=== PATIENT | female | born 1940 | race Caucasian/White ===

== ENCOUNTER → 2017-03-03 | Outpatient (CLI) | payer MEDICARE ==
[2017-03-03 08:23] LABS: CH 28.3; CHCM 33.5; HCT 49.9 % (34.0-46.0); HDW 3.08; HGB 16.6 gm/dL (11.4-16.0); MCH 28.1 pg (25.0-35.0); MCHC 33.2 g/dL (31.0-37.0); MCV 84.7 fL (80.0-100.0); Mean Platelet Volume 6.3; RBC 5.89 m/uL (3.80-5.40); RDW 14.8 % (11.5-15.5); WBC 9.1 k/uL (3.8-10.6)
[2017-03-03 08:27] LABS: ALT 31 U/L (9-52); AST 30 U/L (14-36); Alkaline Phosphatase 92 U/L (38-126); Anion Gap 11 mmol/L; Blood Urea Nitrogen 22 mg/dL (7-17); Carbon Dioxide 32 mmol/L (22-30); Chloride 100 mmol/L (98-107); Cholesterol 195 mg/dL (<200); Glucose 113 mg/dL (74-99); HDL Cholesterol 56 mg/dL (40-60); Non-African American GFR(MDRD) 54 (>60 ml/min/1.73 sqM); Potassium 4.4 mmol/L (3.5-5.1); Sodium 143 mmol/L (137-145); Total Bilirubin 0.7 mg/dL (0.2-1.3); Total Protein 7.2 g/dL (6.3-8.2); Triglycerides 215 mg/dL (<150); Uric Acid 7.3 mg/dL (3.7-7.4)
[2017-03-03 08:32] LABS: Appearance,Urine Turbid (Clear); Bacteria,Urine Many /hpf; Bilirubin,Urine Negative (Negative); Glucose,Urine (UA) Negative (Negative); Ketones,Urine Negative (Negative); Leukocyte Esterase,Urine Large (Negative); Mucus,Urine Rare /hpf; Nitrite,Urine Negative (Negative); Particle Count 24444; Protein,Urine 1+ (Negative); Squamous Epithelial Cell,Urine 6 /hpf (0-4); UA Billing (MACRO vs. MICRO) MICRO; Urobilinogen,Urine <2.0 mg/dL (<2.0); WBC,Urine 54 /hpf (0-5)
[2017-03-03 13:53] LABS: Hemoglobin A1C 5.9 % (4.2-6.1)
== END | disposition home or self-care (01) ==
LOC: LABWHC1 07:36
PROVIDERS: ATTEND Family Medicine
DX: I10 Essential (primary) hypertension (principal); M10.9 Gout, unspecified; R73.01 Impaired fasting glucose
CPT/HCPCS: 36415; 80053; 80061; 81001; 83036; 84550; 85027

== ENCOUNTER → 2017-05-07 | Outpatient (CLI) | payer MEDICARE ==
--- NOTE | 2017-05-08 13:24 | MM ---
Reason for exam: screening (asymptomatic). Last mammogram was performed 1 year and 3 months ago. History: Patient is postmenopausal. Family history of breast cancer in 2 sisters and premenopausal breast cancer in sister. Benign stereotactic core biopsy of the left breast, August 13, 2000. Core biopsy of the left breast. Physical Findings: A clinical breast exam by your physician is recommended on an annual basis and results should be correlated with mammographic findings. MG 3D Screening Mammo W/Cad Bilateral CC and MLO view(s) were taken. Prior study comparison: February 07, 2016, bilateral MG screening mammo w CAD. January 05, 2015, bilateral MG screening mammo w CAD. There are scattered fibroglandular densities. There is no discrete abnormality. No significant changes when compared with prior studies. ASSESSMENT: Benign, BI-RAD 2 RECOMMENDATION: Routine screening mammogram of both breasts in 1 year.
== END | disposition home or self-care (01) ==
LOC: RADMAMWWP 10:48
PROVIDERS: ATTEND Family Medicine
DX: Z12.31 Encounter for screening mammogram for malignant neoplasm of breast (principal)
CPT/HCPCS: 77063; G0202

== ENCOUNTER → 2018-11-05 | Outpatient (CLI) | payer MEDICARE ==
--- NOTE | 2018-11-05 10:27 | CT ---
EXAMINATION TYPE: CT abdomen pelvis w con DATE OF EXAM: 11/05/2018 HISTORY: LLQ pain CT DLP: 1706mGycm Automated Exposure Control for Dose Reduction was Utilized. CONTRAST: CT scan of the abdomen and pelvis is performed with IV Contrast, patient injected with 100 ml mL of I sovue 300. COMPARISON: None. FINDINGS: LUNG BASES: Subpleural subsegmental atelectasis is seen dependently bilaterally. LIVER/GB: Hepatic parenchyma is diffusely hypoattenuated in comparison to that of the spleen, most co mmonly seen in hepatic steatosis. This finding limits evaluation for hepatic masses. No gross evidenc e of hepatic mass is seen. No intrahepatic biliary ductal dilatation. No cholelithiasis . PANCREAS: There is mild pancreatic parenchymal atrophy without ductal dilatation. SPLEEN: No significant abnormality is seen. ADRENALS: No significant abnormality is seen. KIDNEYS: There is left renal atrophy with multiple left renal cysts measuring 3.4 and 3.2 cm and 2 le ft lower pole renal calculi not are nonobstructing measuring 5 mm each. Focal cortical defect is seen on the right lateral mid pole possibly from prior trauma. No right-side d hydronephrosis is seen. BOWEL: Moderate amount retained colonic stool is noted. No dilated large or small bowel is seen. No p ericolonic fat stranding is identified. Appendix is air-filled and within normal limits. There appear s to be a polypoid lesion within the stomach on coronal series 6 image 50 and sagittal series 7 image 73 measuring 1.2 x 2.0 cm. Endoscopy is recommended. UTERUS/ADNEXA: Uterus appears heterogenous and partially atrophic. Centrally there is hyperattenuatio n such as on series 4 image 69 in liver windows. Endometrial thickening is a possibility and pelvic u ltrasound is recommended. LYMPH NODES: No greater than 1cm abdominal or pelvic lymph nodes are appreciated. OSSEOUS STRUCTURES: Mild femoral acetabular arthropathy is present bilaterally. Degenerative changes of the sacroiliac joints are seen as well as degenerative changes of the spine.. OTHER: Extensive atheromatous changes are seen of the abdominal aorta and its branches, penetrating a theromatous ulcer is noted on series 4 image 38. IMPRESSION: 1. No significant acute finding is seen to account for patient's clinical symptoms. However there is heterogeneity of the uterus with possible fibroid change or endometrial thickening and pelvic ultraso und is recommended for further assessment. 2. Polypoid lesion within the gastric fundus measuring up to 2 cm for which endoscopy is recommended for further evaluation. 3. Atrophic left kidney with multiple cysts and nonobstructing calculi. 4. Hepatic steatosis. 5. Extensive atheromatous plaquing of the abdominal aorta and its branches.
== END ==
LOC: RADCTMAIN 07:35
PROVIDERS: ATTEND Family Medicine
DX: K31.7 Polyp of stomach and duodenum (principal); N26.1 Atrophy of kidney (terminal); N20.0 Calculus of kidney; K76.0 Fatty (change of) liver, not elsewhere classified; I70.0 Atherosclerosis of aorta
CPT/HCPCS: 82565; 84520; 74177; 36415; Q9967

== ENCOUNTER 2018-12-31 12:13 | Observation (INO) | payer MEDICARE ==
--- NOTE | 2018-12-31 12:59 | ED ---
General Adult HPI - General Chief complaint: Chest Pain Stated complaint: chest pain Time Seen by Provider: 12/31/18 12:15 Source: patient, RN notes reviewed Mode of arrival: EMS Limitations: no limitations - History of Present Illness Initial comments: This is a 78-year-old female with past medical history significant for high blood pressure high cholesterol and a family history for cardiac disease. Patient was having cataract surgery today and after surgery she spiked a blood pressure over to 20 and then started having chest heaviness radiating into her left arm. Patient states she was also short of breath at that time. Patient was given hydralazine at the facility but did not bring down her blood pressure. At this point time the patient had an EKG which the anesthesiologist stated was normal and she was then transported to the emergency department. Currently patient states she is chest pain-free. Patient had Nitropaste on her chest from the anesthesiologist as well. Patient denies abdominal pain patient has nausea vomiting diarrhea. - Related Data Home Medications Medication Instructions Recorded Confirmed Allopurinol 300 mg PO DAILY 03/08/15 12/31/18 Atenolol 50 mg PO DAILY 03/08/15 12/31/18 Pravastatin Sodium 40 mg PO DAILY 03/08/15 12/31/18 Triamterene/Hydrochlorothiazid 37.5 mg PO DAILY 03/08/15 12/31/18 [Triamterene-Hctz 37.5-25 mg Cp] Calcium Carbonate [Calcium] 600 mg PO DAILY 12/31/18 12/31/18 Cholecalciferol [Vitamin D3] 1,000 unit PO DAILY 12/31/18 12/31/18 Allergies Allergy/AdvReac Type Severity Reaction Status Date / Time No Known Allergies Allergy Verified 12/31/18 13:06 Review of Systems ROS Statement: Those systems with pertinent positive or pertinent negative responses have been documented in the HPI. ROS Other: All systems not noted in ROS Statement are negative. Past Medical History Past Medical History: Hypertension History of Any Multi-Drug Resistant Organisms: None Reported Past Surgical History: Cholecystectomy, Hysterectomy, Tubal Ligation Past Psychological History: No Psychological Hx Reported Smoking Status: Former smoker Past Alcohol Use History: None Reported Past Drug Use History: None Reported General Exam - General Exam Comments Initial Comments: GENERAL: Patient is well-developed and well-nourished. Patient is nontoxic and well- hydrated and is in mild distress. ENT: Neck is soft and supple. No significant lymphadenopathy is noted. Oropharynx is clear. Moist mucous membranes. Neck has full range of motion without eliciting any pain. EYES: The sclera were anicteric and conjunctiva were pink and moist. Extraocular movements were intact and pupils were equal round and reactive to light. Eyelids were unremarkable. PULMONARY: Unlabored respirations. Good breath sounds bilaterally. No audible rales rhonchi or wheezing was noted. CARDIOVASCULAR: There is a regular rate and rhythm without any murmurs gallops or rubs. ABDOMEN: Soft and nontender with normal bowel sounds. No palpable organomegaly was noted. There is no palpable pulsatile mass. SKIN: Skin is clear with no lesions or rashes and otherwise unremarkable. NEUROLOGIC: Patient is alert and oriented x3. Cranial nerves II through XII are grossly intact. Motor and sensory are also intact. Normal speech, volume and content. Symmetrical smile. MUSCULOSKELETAL: Normal extremities with adequate strength and full range of motion. No lower extremity swelling or edema. No calf tenderness. LYMPHATICS: No significant lymphadenopathy is noted PSYCHIATRIC: Normal psychiatric evaluation. Limitations: no limitations Course Vital Signs 12/31/18 12/31/18 12:30 13:30 Temperature 97.8 F Pulse Rate 77 75 Respiratory 16 18 Rate Blood Pressure 160/72 139/86 O2 Sat by Pulse 95 94 L Oximetry Medical Decision Making - Medical Decision Making EKG shows sinus rhythm at 77 bpm OH interval is 194 QRS is 94 QT interval 42 QTC is 454. Patient's EKG shows no ST segment elevation or depression or T wave normalities are noted. The. Chest x-ray shows no acute abnormality. Patient's blood pressure came down to 125 systolic and patient had no chest pain at this time. Because of the significance of the patient's symptoms she was diagnosed with unstable angina. I started the patient on heparin I continued heparin Nitropaste and aspirin floor. I spoke with Dr. Tavares agreed to admit the patient admitted the patient I wrote admitting orders consult cardiology - Lab Data Result diagrams: 12/31/18 13:34 12/31/18 13:34 Lab Results 12/31/18 12/31/18 12/31/18 Range/Units 13:34 13:34 13:34 WBC 8.8 (3.8-10.6) k/uL RBC 5.72 H (3.80-5.40) m/uL Hgb 15.6 (11.4-16.0) gm/dL Hct 48.4 H (34.0-46.0) % MCV 84.6 (80.0-100.0) fL MCH 27.3 (25.0-35.0) pg MCHC 32.3 (31.0-37.0) g/dL RDW 15.0 (11.5-15.5) % Plt Count 205 (150-450) k/uL Neutrophils % 71 % Lymphocytes % 19 % Monocytes % 7 % Eosinophils % 2 % Basophils % 1 % Neutrophils # 6.2 (1.3-7.7) k/uL Lymphocytes # 1.7 (1.0-4.8) k/uL Monocytes # 0.6 (0-1.0) k/uL Eosinophils # 0.1 (0-0.7) k/uL Basophils # 0.1 (0-0.2) k/uL PT 10.6 (9.0-12.0) sec INR 1.0 (<1.2) APTT 23.3 (22.0-30.0) sec Sodium 140 (137-145) mmol/L Potassium 3.8 (3.5-5.1) mmol/L Chloride 104 (98-107) mmol/L Carbon Dioxide 28 (22-30) mmol/L Anion Gap 8 mmol/L BUN 13 (7-17) mg/dL Creatinine 0.59 (0.52-1.04) mg/dL Est GFR (CKD-EPI)AfAm >90 (>60 ml/min/1.73 sqM) Est GFR (CKD-EPI)NonAf 88 (>60 ml/min/1.73 sqM) Glucose 113 H (74-99) mg/dL Calcium 9.6 (8.4-10.2) mg/dL Magnesium 2.0 (1.6-2.3) mg/dL Total Bilirubin 0.7 (0.2-1.3) mg/dL AST 33 (14-36) U/L ALT 27 (9-52) U/L Alkaline Phosphatase 70 (38-126) U/L Troponin I (0.000-0.034) ng/mL Total Protein 6.4 (6.3-8.2) g/dL Albumin 4.0 (3.5-5.0) g/dL 12/31/18 Range/Units 13:34 WBC (3.8-10.6) k/uL RBC (3.80-5.40) m/uL Hgb (11.4-16.0) gm/dL Hct (34.0-46.0) % MCV (80.0-100.0) fL MCH (25.0-35.0) pg MCHC (31.0-37.0) g/dL RDW (11.5-15.5) % Plt Count (150-450) k/uL Neutrophils % % Lymphocytes % % Monocytes % % Eosinophils % % Basophils % % Neutrophils # (1.3-7.7) k/uL Lymphocytes # (1.0-4.8) k/uL Monocytes # (0-1.0) k/uL Eosinophils # (0-0.7) k/uL Basophils # (0-0.2) k/uL PT (9.0-12.0) sec INR (<1.2) APTT (22.0-30.0) sec Sodium (137-145) mmol/L Potassium (3.5-5.1) mmol/L Chloride (98-107) mmol/L Carbon Dioxide (22-30) mmol/L Anion Gap mmol/L BUN (7-17) mg/dL Creatinine (0.52-1.04) mg/dL Est GFR (CKD-EPI)AfAm (>60 ml/min/1.73 sqM) Est GFR (CKD-EPI)NonAf (>60 ml/min/1.73 sqM) Glucose (74-99) mg/dL Calcium (8.4-10.2) mg/dL Magnesium (1.6-2.3) mg/dL Total Bilirubin (0.2-1.3) mg/dL AST (14-36) U/L ALT (9-52) U/L Alkaline Phosphatase (38-126) U/L Troponin I <0.012 (0.000-0.034) ng/mL Total Protein (6.3-8.2) g/dL Albumin (3.5-5.0) g/dL Critical Care Time Critical Care Time: Yes Total Critical Care Time: 35 Disposition Clinical Impression: Unstable angina pectoris Disposition: ADMITTED IP TO THIS HOSP Referrals: Antonio Barrow DO [Primary Care Provider] - 1-2 days Time of Disposition: 15:25
--- NOTE | 2018-12-31 13:18 | XR ---
EXAMINATION TYPE: XR chest 2V DATE OF EXAM: 12/31/2018 COMPARISON: 03/08/2015 HISTORY: Shortness of breath TECHNIQUE: Frontal and lateral views of the chest are obtained. FINDINGS: Scattered senescent parenchymal changes noted. Hyperinflation compatible with COPD. No evidence for infiltrate. No evidence for atelectasis. Heart size is stable. Mediastinal structures are stable and grossly unremarkable. No evidence for hilar prominence. Degenerative changes dorsal spine. IMPRESSION: 1. No evidence for acute pulmonary disease.
[2018-12-31 14:08] LABS: Basophils # (A) 0.1 k/uL (0-0.2); Basophils % (A) 1 %; Eosinophils # (A) 0.1 k/uL (0-0.7); Eosinophils % (A) 2 %; HCT 48.4 % (34.0-46.0); HGB 15.6 gm/dL (11.4-16.0); Lymphocytes # (A) 1.7 k/uL (1.0-4.8); Lymphocytes % (A) 19 %; MCH 27.3 pg (25.0-35.0); MCHC 32.3 g/dL (31.0-37.0); MCV 84.6 fL (80.0-100.0); Mean Platelet Volume 6.8; Monocytes # (A) 0.6 k/uL (0-1.0); Monocytes % (A) 7 %; Neutrophils # (A) 6.2 k/uL (1.3-7.7); Neutrophils % (A) 71 %; Platelet Count 205 k/uL (150-450); RBC 5.72 m/uL (3.80-5.40); WBC 8.8 k/uL (3.8-10.6)
[2018-12-31 14:18] LABS: Partial Thromboplastin Time 23.3 sec (22.0-30.0); Prothrombin Time 10.6 sec (9.0-12.0)
[2018-12-31 14:38] LABS: ALT 27 U/L (9-52); AST 33 U/L (14-36); Alkaline Phosphatase 70 U/L (38-126); Anion Gap 8 mmol/L; Blood Urea Nitrogen 13 mg/dL (7-17); Calcium 9.6 mg/dL (8.4-10.2); Carbon Dioxide 28 mmol/L (22-30); Chloride 104 mmol/L (98-107); Glucose 113 mg/dL (74-99); Potassium 3.8 mmol/L (3.5-5.1); Sodium 140 mmol/L (137-145); Total Bilirubin 0.7 mg/dL (0.2-1.3); Total Protein 6.4 g/dL (6.3-8.2)
[2018-12-31] MEDS ORDERED: HEPARIN SODIUM,PORCINE 5,000 UNIT/ML 1 ML VIAL IV ONE (15:23)
[2018-12-31] MEDS ORDERED: NITROGLYCERIN SL TABS 0.4 MG TAB SUBLINGUAL PRN (15:26)
[2018-12-31] MEDS ORDERED: HEPARIN SOD,PORK IN 0.45% NACL 25,000 UNIT in 0.45% NACL 1 250ML.BAG IV SCH (15:30)
[2018-12-31] MEDS: NITROGLYCERIN OINT 1 INCH/GM PACKET TOPICAL SCH (18:19)
[2018-12-31] MEDS ORDERED: PRAVASTATIN SODIUM 40 MG TAB PO SCH (21:00)
[2018-12-31] MEDS ORDERED: ONDANSETRON 4 MG/2 ML VIAL IVP PRN (23:06)
[2018-12-31] MEDS ORDERED: MAGNESIUM HYDROXIDE 2,400 MG/10 ML CUP PO PRN (23:06)
[2018-12-31] MEDS ORDERED: MELATONIN 3 MG TABLET PO PRN (23:06)
[2018-12-31] MEDS ORDERED: LACTULOSE 20 GM/30 ML CUP PO PRN (23:06)
[2018-12-31] MEDS ORDERED: CALCIUM CARBONATE 500 MG CHEWABLE PO PRN (23:06)
[2018-12-31] MEDS ORDERED: NALOXONE 0.4 MG/ML 1 ML VIAL IV PRN (23:06)
[2018-12-31] MEDS ORDERED: ACETAMINOPHEN TAB 500 MG TAB PO PRN (23:07)
--- NOTE | 2018-12-31 23:55 | HP ---
HISTORY AND PHYSICAL DATE OF ADMISSION: 12/31/2018 DATE OF SERVICE: 12/31/2018. PRESENTING COMPLAINT: Chest pressure. HISTORY OF PRESENTING COMPLAINT: A very pleasant 78-year-old patient of Dr. Barrow whose chronic stable medical conditions include hypertension, hyperlipidemia, osteoarthritis. The patient had cataract surgery in the right eye done by Dr. Polanco. Post procedure, she was lying down and suddenly she developed chest heaviness. Did not radiate and shortness of breath which may have lasted for about 10 minutes that subsided on its own. There was no perspiration, dizziness, lightheadedness. The patient has had several stress tests in the past, cannot remember the last time she had one. REVIEW OF SYSTEMS: CONSTITUTIONAL: As above. HEENT as above. RESPIRATORY as above. CARDIOVASCULAR as above. GASTROINTESTINAL none. GENITOURINARY: Urinary frequency, sometimes. DERMATOLOGICAL, HEMATOLOGIC, LYMPHATIC: none. PSYCHIATRY none. NEUROLOGICAL none. MUSCULOSKELETAL as above. PAST MEDICAL HISTORY: Hyperlipidemia, hypertension, obstructive sleep apnea does not use CPAP, has a mass in between the cervix and colon that she is scheduled to have a colonoscopy soon and shingles. PAST SURGICAL HISTORY: Cholecystectomy, hysterectomy, tubal ligation, right cataract done earlier today. SOCIAL HISTORY: The patient currently during the weekdays lives with her daughter who has got seizures at night and on weekend she comes back to her place. She smoked for 20 years, stopped 40 years ago. No alcohol. FAMILY HISTORY: Reviewed, not contributory to presentation. HOME MEDICATIONS: 1. Triamterene hydrochlorothiazide 37.5/25 1 capsule p.o. daily. 2. Vitamin D3 1000 units p.o. daily. 3. Pravastatin 40 mg p.o. daily. 4. Calcium 600 mg p.o. daily. 5. Atenolol 50 mg p.o. daily. 6. Allopurinol 300 mg p.o. daily. ALLERGIES: None. PHYSICAL EXAMINATION: VITAL SIGNS: Temperature 98.1, pulse 72, respiratory 18, blood pressure 142/72. Pulse ox 94 percent on room air. GENERAL APPEARANCE: Well built. BMI 43.8. Lying in bed, awake. EYES: Dressing over the right eye. Left pupil is normal. HEENT: External appearance of nose and ears normal. Oral cavity normal. NECK: JVD unable to assess. Mass not palpable. RESPIRATORY: Effort normal. LUNGS: Distant breath sounds. CARDIOVASCULAR: Heart sounds muffled. No edema. ABDOMEN: Soft, nontender. Liver and spleen not palpable. LYMPHATICS: No lymph nodes palpable in the neck and axilla. PSYCHIATRY: Alert and oriented x3. Mood and affect normal. NEUROLOGICAL: Dressing over the right eye. Left pupil appears normal. No facial asymmetry. Power and sensation grossly intact. MUSCULOSKELETAL: Evidence of osteoarthritis especially in the hands. INVESTIGATIONS: White count 8.8, hemoglobin 15.6, potassium 3.8. BUN and creatinine is normal. Troponin times two negative. EKG tracing personally reviewed by me shows normal sinus rhythm. Chest x-ray film personally reviewed by me shows borderline cardiomegaly. Lung gray appear to be clear. ASSESSMENT: 1. Anterior chest wall pain, short of breath, which was self-limiting for about 10 minutes in a patient whose cardiac risk factors include hypertension, hyperlipidemia, obesity, remote history in the past and her age. Patient has had a stress test. The last one being some while ago. Needs to consider angina. 2. Essential hypertension. 3. Hyperlipidemia. 4. Morbid obesity BMI of 43.5. 5. Primary osteoarthritis. 6. Status post right eye cataract surgery done earlier today. PLAN: Home medications resumed. Patient is put on IV heparin in the ER, nitro paste, aspirin. Cardiology is consulted. Care was discussed with the patient. Copy to Dr. Barrow. NICOLE / KORINA: [phone] /
[2019-01-01 02:49] LABS: Cholesterol 156 mg/dL (<200); HDL Cholesterol 46 mg/dL (40-60); LDL Cholesterol,Calculated 64 mg/dL (0-99); Triglycerides 228 mg/dL (<150)
[2019-01-01] MEDS: NITROGLYCERIN OINT 1 INCH/GM PACKET TOPICAL SCH ×2 (05:06→05:07)
--- NOTE | 2019-01-01 08:08 | CONS ---
CONSULTATION Mrs. Landry is a 78-year-old female with known history of hypertension, hyperlipidemia who presented to the hospital with symptoms of chest discomfort. She has underwent right cataract surgery yesterday and shortly after surgery she had episode of chest tightness as well as dyspnea. The discomfort has resolved since. She felt that it may be a reaction to some medication. She denies any symptoms at this time. She has no prior history of documented myocardial infarction or ischemic heart disease or heart failure. She is average in her exercise tolerance and has no exertional chest discomfort or significant dyspnea. Her last stress test according to her was about 2 years ago that was unremarkable. She has no history of PND, orthopnea. She has mild peripheral edema. No history of dizziness or syncope. Her coronary risk factors are positive for hyperlipidemia and hypertension. She is not a smoker, nondiabetic. MEDICATIONS: Her medications include Dyazide once a day, pravastatin 40 mg daily, calcium, atenolol 50 mg daily, and allopurinol. REVIEW OF SYSTEMS: RESPIRATORY SYSTEM: She has no documented history of asthma, emphysema or bronchitis. GI SYSTEM: No recent GI bleed. No peptic ulcer disease. SYSTEM: No dysuria or hematuria. NERVOUS SYSTEM: No stroke or seizure. PHYSICAL EXAMINATION: She is a 78-year-old female, alert, oriented, in no apparent distress. Blood pressure 135/70 with the heart rate in the 70s. HEAD: Normocephalic, patch noted above the right eye. EYES: Left eye sclerae nonicteric. NECK: Good upstroke. No bruit. No jugular venous distention. LUNGS: Clear to auscultation. HEART: Regular rate and rhythm. S1, S2. No S3 with a soft systolic murmur 2/6 at the base. No diastolic murmur no rub. ABDOMEN: Soft, obese, nontender. Positive bowel sounds. No organomegaly. EXTREMITIES: Trace edema with mild erythema. Intact distal pulses. LAB DATA: Lab data revealed troponin less than 0.012. BUN and creatinine 13 and 0.59. Cholesterol 156, LDL of 64. Hemoglobin of 15.6. EKG revealed a sinus mechanism, normal axis and intervals, cannot exclude inferior wall myocardial infarction, age undetermined. Chest x-ray shows no acute infiltrate. IMPRESSION: 1. Chest discomfort of unclear etiology. No evidence to suggest acute coronary syndrome. 2. History of hypertension. 3. Hyperlipidemia. 4. Status post recent cataract surgery. RECOMMENDATION: I will stop the heparin and the nitrate. Increase her level of activity. Obtain an echocardiogram. If she is stable, I would expect she should be able to be discharged home today and followed as an outpatient. Thank you for this consult. We will follow with you. NICOLE / KORINA: [id number] /
[2019-01-01 08:54] VITALS: RESP 18
[2019-01-01] MEDS ORDERED: ATENOLOL 50 MG TAB PO SCH (09:00)
[2019-01-01] MEDS ORDERED: TRIAMTERENE-HCTZ 37.5-25MG 1 EACH CAP PO SCH (09:00)
[2019-01-01] MEDS ORDERED: ASPIRIN 325 MG TAB PO SCH (09:00)
[2019-01-01] MEDS ORDERED: ALLOPURINOL 300 MG TAB PO SCH (09:00)
[2019-01-01] MEDS ORDERED: ASPIRIN 81 MG PO SCH (09:00)
[2019-01-01 11:48] VITALS: BP 155/76; PULSE 66; TEMP 97.5
--- NOTE | 2019-01-01 15:10 | ECHOF ---
Referral Reason:cp MEASUREMENTS -------- HEIGHT: 160.0 cm WEIGHT: 112.0 kg BP: 135/70 RVIDd: 2.6 cm (< 3.3) IVSd: 1.4 cm (0.6 - 1.1) LVIDd: 3.8 cm (3.9 - 5.3) LVPWd: 1.3 cm (0.6 - 1.1) IVSs: 1.9 cm LVIDs: 2.7 cm LVPWs: 1.7 cm LA Diam: 3.2 cm (2.7 - 3.8) LAESV Index (A-L): 13.23 ml/m Ao Diam: 3.1 cm (2.0 - 3.7) AV Cusp: 2.5 cm (1.5 - 2.6) MV EXCURSION: 11.453 mm (> 18.000) MV EF SLOPE: 42 mm/s (70 - 150) EPSS: 0.3 cm MV E Abhijit: 1.06 m/s MV DecT: 191 ms MV A Abhijit: 1.28 m/s MV E/A Ratio: 0.83 AR PHT: 842 ms RAP: 5.00 mmHg RVSP: 47.51 mmHg FINDINGS -------- Sinus rhythm. This was a technically adequate study. The left ventricular size is normal. There is moderate concentric left ventricular hypertrophy. O verall left ventricular systolic function is normal with, an EF between 55 - 60 %. The right ventricle is normal in size. Normal LA size by volume 22+/-6 ml/m2. The right atrium is normal in size. There is mild aortic valve sclerosis. There is mild aortic regurgitation. Mild mitral annular calcification present. There is trace to mild mitral regurgitation. Mild tricuspid regurgitation present. There is moderate pulmonary hypertension. The right ventric ular systolic pressure, as measured by Doppler, is 47.51mmHg. The pulmonic valve was not well visualized. Trace/mild (physiologic) pulmonic regurgitation. The aortic root size is normal. Normal inferior vena cava with normal inspiratory collapse consistent with estimated right atrial pre ssure of 5 mmHg. There is no pericardial effusion. CONCLUSIONS -------- 1. Sinus rhythm. 2. This was a technically adequate study. 3. The left ventricular size is normal. 4. There is moderate concentric left ventricular hypertrophy. 5. Overall left ventricular systolic function is normal with, an EF between 55 - 60 %. 6. Normal LA size by volume 22+/-6 ml/m2. 7. There is mild aortic valve sclerosis. 8. There is mild aortic regurgitation. 9. Mild mitral annular calcification present. 10. There is trace to mild mitral regurgitation. 11. Mild tricuspid regurgitation present. 12. There is moderate pulmonary hypertension. 13. Trace/mild (physiologic) pulmonic regurgitation. 14. The aortic root size is normal. 15. Normal inferior vena cava with normal inspiratory collapse consistent with estimated right atrial pressure of 5 mmHg. 16. There is no pericardial effusion. CHEF CONCIERGE: Frances Coats RDCS
--- NOTE | 2019-01-01 20:35 | P.DS ---
Providers Date of admission: 12/31/18 15:26 Attending physician: Martin Tavares Consults: 12/31/18 15:26 Consult Physician Urgent Consulting Provider: [facility] Consult Reason/Comments: Unstable angina Do you want consulting provider notified?: Yes Primary care physician: [facility] Course: This is a pleasant 78 years old female with past medical history of hypertension, hyperlipidemia, obesity, sleep apnea. She had recent surgery for her cataract of right eye, after the surgery she developed some chest pressure and intermittent dyspnea associated emergency room. Patient has been evaluated by gas appliance installer. who recommended echocardiogram which was unremarkable, he stopped the heparin drip which was started on admission. And cleared her for discharge. Patient chest pain and dyspnea has completely resolved and currently she is chest pain free. Patient denies any other complaints. Abdominal pain. No nausea vomiting. No change in urine or bowel habits. No fever. Patient felt she can go home. 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 Problems and management plan was discussed with patient and she verbalized understanding and acceptance Patient was found stable and can be discharged and guarded prognosis however she needs follow-up as an outpatient. Patient agrees with the appointments made with a gas appliance installer. She states she will call her PCP within one week as instructed. and she agrees with gas appliance installer appointment and its timing. Gen: patient is a AAOx3, no distress CVS: S1-S2, RRR, no murmur Lungs: B/L CTA, no wheezing Abdomen: soft, no distention, no tenderness, positive bowel sounds Extremity: no leg edema or induration Time spent more than 35 minutes Plan - Discharge Summary Discharge Rx Participant: No New Discharge Prescriptions: New Aspirin 81 mg PO DAILY chew Nitroglycerin Sl Tabs [Nitrostat] 0.4 mg SUBLINGUAL Q5M PRN #20 tab PRN Reason: Chest Pain Acetaminophen Tab [Tylenol] 500 mg PO Q6HR PRN tab PRN Reason: Fever And/ Or Pain Continue Triamterene/Hydrochlorothiazid [Triamterene-Hctz 37.5-25 mg Cp] 1 cap PO DAILY Pravastatin Sodium 40 mg PO DAILY Atenolol 50 mg PO DAILY Allopurinol 300 mg PO DAILY Cholecalciferol [Vitamin D3] 1,000 unit PO DAILY Calcium Carbonate [Calcium] 600 mg PO DAILY Discharge Medication List Allopurinol 300 mg PO DAILY 03/08/15 [History] Atenolol 50 mg PO DAILY 03/08/15 [History] Pravastatin Sodium 40 mg PO DAILY 03/08/15 [History] Triamterene/Hydrochlorothiazid [Triamterene-Hctz 37.5-25 mg Cp] 1 cap PO DAILY 03/08/15 [History] Calcium Carbonate [Calcium] 600 mg PO DAILY 12/31/18 [History] Cholecalciferol [Vitamin D3] 1,000 unit PO DAILY 12/31/18 [History] Acetaminophen Tab [Tylenol] 500 mg PO Q6HR PRN tab 01/01/19 [Rx] Aspirin 81 mg PO DAILY chew 01/01/19 [Rx] Nitroglycerin Sl Tabs [Nitrostat] 0.4 mg SUBLINGUAL Q5M PRN #20 tab 01/01/19 [Rx] Follow up Appointment(s)/Referral(s): Bernardo Guerrero MD [STAFF PHYSICIAN] - 01/09/19 2:30 pm Antonio Barrow DO [Primary Care Provider] - 1-2 days Patient Instructions/Handouts: Chest Pain (DC) Activity/Diet/Wound Care/Special Instructions: Cardiac diet Activity is limited until you see your doctor Discharge Disposition: HOME SELF-CARE
== END 2019-01-01 16:10 | disposition home or self-care (01) ==
LOC: EC 12:13 → 1SOBS 15:26
PROVIDERS: ADMIT Hospitalist; ATTEND Hospitalist
DX: R07.89 Other chest pain (principal); R06.00 Dyspnea, unspecified; E66.01 Morbid (severe) obesity due to excess calories; Z68.41 Body mass index [BMI] 40.0-44.9, adult; E78.00 Pure hypercholesterolemia, unspecified; E78.5 Hyperlipidemia, unspecified; G47.33 Obstructive sleep apnea (adult) (pediatric); I10 Essential (primary) hypertension; M19.91 Primary osteoarthritis, unspecified site; Z98.41 Cataract extraction status, right eye; Z90.710 Acquired absence of both cervix and uterus; Z87.891 Personal history of nicotine dependence; Z79.899 Other long term (current) drug therapy
CPT/HCPCS: 96366 ×2; 96376; 96365; 99291; 36415; 93005; 93306; 80061; 80053; 83735; 84484 ×2; 85025; 85610; 85730 ×2; 71046; G0378 ×2; J1644 ×2

== ENCOUNTER 2019-01-06 10:05 | Day surgery (SDC) | payer MEDICARE ==
[2019-01-02 12:53] VITALS: BMI 43.7
[~2019-01-06 10:05] MED LIST: LACTATED RINGERS 1,000 ML IV SCH
[2019-01-06 10:49] VITALS: TEMP 98.4
[2019-01-06] MEDS ORDERED: GLYCOPYRROLATE 0.2 MG/ML 2 ML VIAL ONE (11:50)
[2019-01-06] MEDS ORDERED: PROPOFOL 10 MG/ML 20 ML VIAL IV ONE (11:50)
[2019-01-06] MEDS ORDERED: KETAMINE 10 MG/ML 20 ML VIAL ONE (11:50)
[2019-01-06] MEDS ORDERED: MIDAZOLAM 2 MG/2 ML VIAL ONE (11:50)
[2019-01-06 12:41] VITALS: RESP 16
--- NOTE | 2019-01-06 12:49 | P.PCN ---
Date of Procedure: 01/06/19 Procedure(s) Performed: Procedure: 1. Esophagogastroduodenoscopy and biopsy and polypectomy. 2. Colonoscopy and polypectomy. Preoperative diagnosis: Abnormal CT of the abdomen showing a polypoid filling defect in the fundus and screening colonoscopy. Postoperative diagnosis: 1. Gastritis, antral biopsy obtained, and polyp in the fundus snared. 2. Small sigmoid polyp snared but no large polyps or cancer. Preparation: HalfLytely prep. Sedation: Was provided by anesthesia. Brief clinical history: The patient is a 78-year-old female who is referred for this evaluation for the above reasons. She has been experiencing abdominal discomfort and a CT of the abdomen showed a filling defect in the fundus of the stomach and upper endoscopy was recommended. The patient was also recommended a colonoscopy because of her pains and since she has not had a colon exam in many years. Procedure: With the patient on her left lateral decubitus position and after informed consent and adequate sedation, I passed a Olympus-GIF H119 video upper endoscope through the cricopharyngeus down the esophagus. No obvious abnormalities were seen in the esophagus. The endoscope was then passed into the stomach which was insufflated with air and inspected in detail including the retroflex view in the cardia. There was diffuse mottling and erythema most prominent in the antrum and there were a few regenerative polyps noted in the stomach, however, an elongated polyp between 2 and 3 cm in size was noted in the fundus corresponding to the abnormality on CT. Because of its location, I proceeded to snare it and removed it with the snare. Pyloric channel, duodenal bulb, post bulbar area and descending duodenum appeared healthy. I obtained a biopsy from the antrum as well as. The endoscope was withdrawn then I proceeded with the colonoscopy. Perianal area did not show any fissures or fistulas. There were no masses felt on digital rectal examination. The Olympus CF H190L video colonoscope was then inserted in the rectum in the usual fashion and advanced to the cecum. There was a small polyp in the distal sigmoid which I snared and retrieved by suction but there were no large polyps or cancer. The mucosa appeared healthy. No definite diverticular disease or other pathology. I retroflexed the endoscope in the rectum before the endoscope was withdrawn. The patient tolerated the procedure well. Plan: The patient will be kept on clear liquid diet today. Further plans will be made based on her course and biopsy results. I will keep you updated on her progress.
[2019-01-06 12:55] VITALS: BP 135/54; PULSE 62
== END 2019-01-06 13:26 | disposition home or self-care (01) ==
LOC: ORWHC2ENDO 10:05
DX: Z12.11 Encounter for screening for malignant neoplasm of colon (principal); D12.5 Benign neoplasm of sigmoid colon; K29.50 Unspecified chronic gastritis without bleeding; I10 Essential (primary) hypertension; E78.5 Hyperlipidemia, unspecified; Z90.49 Acquired absence of other specified parts of digestive tract; J44.9 Chronic obstructive pulmonary disease, unspecified; G47.33 Obstructive sleep apnea (adult) (pediatric); Z79.82 Long term (current) use of aspirin; Z79.899 Other long term (current) drug therapy
CPT/HCPCS: 88305; 45385; 43239; 43251; J2250; J2704

== ENCOUNTER → 2019-01-13 | Outpatient (CLI) | payer MEDICARE ==
--- NOTE | 2019-01-14 09:23 | MM ---
Reason for exam: screening (asymptomatic). Last mammogram was performed 1 year and 8 months ago. History: Patient is postmenopausal. Family history of breast cancer in 2 sisters and premenopausal breast cancer in sister. Benign stereotactic core biopsy of the left breast, August 13, 2000. Core biopsy of the left breast. Physical Findings: A clinical breast exam by your physician is recommended on an annual basis and results should be correlated with mammographic findings. MG 3D Screening Mammo W/Cad Bilateral CC, MLO, and XCCL view(s) were taken. Prior study comparison: May 07, 2017, bilateral MG 3d screening mammo w/cad. February 07, 2016, bilateral MG screening mammo w CAD. There are scattered fibroglandular densities. Stable benign calcifications. There is no discrete abnormality. No significant changes when compared with prior studies. ASSESSMENT: Benign, BI-RAD 2 RECOMMENDATION: Routine screening mammogram of both breasts in 1 year.
== END | disposition home or self-care (01) ==
LOC: RADMAMWWP 12:59
PROVIDERS: ATTEND Family Medicine
DX: Z12.31 Encounter for screening mammogram for malignant neoplasm of breast (principal)
CPT/HCPCS: 77063; 77067

== ENCOUNTER 2021-12-26 12:14 | Observation (INO) | payer MEDICARE ==
[2021-12-26] MEDS ORDERED: ACETAMINOPHEN TAB 500 MG TAB PO STA (12:56)
[2021-12-26] MEDS ORDERED: ALBUTEROL HFA INHALER INHALATION STA (12:58)
--- NOTE | 2021-12-26 13:05 | ED ---
General Adult HPI - General Chief complaint: Chest Pain Stated complaint: Chest pain Time Seen by Provider: 12/26/21 12:30 Source: patient, family, RN notes reviewed Mode of arrival: wheelchair Limitations: no limitations - History of Present Illness Initial comments: Patient is a pleasant 81-year-old female presenting to the emergency Department with chest discomfort and cough. Chest discomfort has been intermittent for the past few weeks. It did start before the cough however patient occasionally has some chest discomfort. Small. Patient has been coughing for the last week. Patient does have some shortness of breath. Patient does have history of COPD and asthma. Occasional clear white sputum. Patient has had chills at home. - Related Data Home Medications Medication Instructions Recorded Confirmed Allopurinol 300 mg PO DAILY 03/08/15 12/26/21 Atenolol 50 mg PO DAILY 03/08/15 12/26/21 Triamterene/Hydrochlorothiazid 1 cap PO DAILY 03/08/15 12/26/21 [Triamterene-Hctz 37.5-25 mg Cp] Calcium Carbonate [Calcium] 600 mg PO DAILY 12/31/18 12/26/21 Albuterol Sulfate [Albuterol 2 puff PO RT-Q6H PRN 12/26/21 12/26/21 Sulfate Hfa] Biotin 5 mg PO DAILY 12/26/21 12/26/21 Black Weinberg 1 cap PO DAILY 12/26/21 12/26/21 Cholecalciferol (Vitamin D3) 75 mcg PO DAILY 12/26/21 12/26/21 [Vitamin D3 (3000 Iu)] Glucos Sul 2Kcl/MSM/Chond/C/Mn 1 cap PO DAILY 12/26/21 12/26/21 [Glucosamine Chondroitin Cap] Multivitamins, Thera [Multivitamin 1 tab PO DAILY 12/26/21 12/26/21 (formulary)] Pantoprazole [Protonix] 40 mg PO DAILY 12/26/21 12/26/21 Potassium Gluconate [Potassium 99 mg PO DAILY 12/26/21 12/26/21 Gluconate ER] Pravastatin Sodium 80 mg PO DAILY 12/26/21 12/26/21 Vitamin A [Vitamin A (8,000 Units 2,400 mcg PO DAILY 12/26/21 12/26/21 = 2,400 MCG)] Previous Rx's Medication Instructions Recorded Acetaminophen Tab [Tylenol] 500 mg PO Q6HR PRN tab 01/01/19 Aspirin 81 mg PO DAILY chew 01/01/19 Nitroglycerin Sl Tabs [Nitrostat] 0.4 mg SUBLINGUAL Q5M PRN #20 tab 01/01/19 Allergies Allergy/AdvReac Type Severity Reaction Status Date / Time No Known Allergies Allergy Verified 12/26/21 13:58 Review of Systems ROS Statement: Those systems with pertinent positive or pertinent negative responses have been documented in the HPI. ROS Other: All systems not noted in ROS Statement are negative. Constitutional: Reports: chills Eyes: Denies: eye pain ENT: Denies: ear pain Respiratory: Reports: cough, dyspnea Cardiovascular: Reports: chest pain Endocrine: Denies: fatigue Gastrointestinal: Denies: abdominal pain Genitourinary: Denies: dysuria Musculoskeletal: Denies: back pain Skin: Denies: rash Neurological: Denies: weakness Past Medical History Past Medical History: Hyperlipidemia, Hypertension, Sleep Apnea/CPAP/BIPAP Additional Past Medical History / Comment(s): pt states she has mass inbetween her cervix and colon that causes her abd pain, pt states she is scheduled to have a colonoscopy next sunday. kidney stones. JAMES no cpap. shingles. hypoglycemia History of Any Multi-Drug Resistant Organisms: None Reported Past Surgical History: Cholecystectomy, Hysterectomy, Tubal Ligation Additional Past Surgical History / Comment(s): right cataract removal done today (12/31/18) Past Anesthesia/Blood Transfusion Reactions: No Reported Reaction Additional Past Anesthesia/Blood Transfusion Reaction / Comment(s): no blood transfusions. per pt she quit breathing the last time she had surgery. Past Psychological History: No Psychological Hx Reported Smoking Status: Never smoker Past Alcohol Use History: None Reported Past Drug Use History: None Reported General Exam Limitations: no limitations General appearance: alert, in no apparent distress Head exam: Present: normocephalic Eye exam: Present: normal appearance Neck exam: Present: normal inspection Respiratory exam: Present: wheezes. Absent: chest wall tenderness Cardiovascular Exam: Present: regular rate, normal rhythm Expanded Peripheral pulses: 2+: Radial (R), Radial (L), Dorsalis Pedis (R), Dorsalis Pedis (L) GI/Abdominal exam: Present: soft. Absent: tenderness Extremities exam: Present: normal inspection. Absent: pedal edema, calf tenderness Neurological exam: Present: alert Psychiatric exam: Present: normal affect, normal mood Skin exam: Present: normal color Course Vital Signs 12/26/21 12/26/21 12/26/21 12:16 12:28 13:20 Temperature 99.3 F Pulse Rate 98 102 H 104 H Respiratory 18 20 20 Rate Blood Pressure 162/71 222/101 198/86 O2 Sat by Pulse 92 L 94 L 97 Oximetry EKG Findings - EKG Comments: EKG Findings:: Sinus rhythm with a rate of 99. NE 187. QRS 87. QT 329. QTc 386. Diffuse Q waves. Nonspecific T waves. Medical Decision Making - Medical Decision Making Patient reevaluated. Patient and family updated. Case discussed with Dr. Galeana, who will admit for hospital observation. - Lab Data Result diagrams: 12/26/21 13:25 12/26/21 13:25 Lab Results 12/26/21 12/26/21 12/26/21 Range/Units 12:48 13:25 13:25 WBC 6.7 (3.8-10.6) k/uL RBC 5.85 H (3.80-5.40) m/uL Hgb 16.5 H (11.4-16.0) gm/dL Hct 50.9 H (34.0-46.0) % MCV 87.1 (80.0-100.0) fL MCH 28.2 (25.0-35.0) pg MCHC 32.3 (31.0-37.0) g/dL RDW 14.6 (11.5-15.5) % Plt Count 190 (150-450) k/uL MPV 6.9 Neutrophils % 74 % Lymphocytes % 14 % Monocytes % 6 % Eosinophils % 3 % Basophils % 1 % Neutrophils # 5.0 (1.3-7.7) k/uL Lymphocytes # 0.9 L (1.0-4.8) k/uL Monocytes # 0.4 (0-1.0) k/uL Eosinophils # 0.2 (0-0.7) k/uL Basophils # 0.1 (0-0.2) k/uL PT 10.5 (9.0-12.0) sec INR 1.0 (<1.2) APTT 23.5 (22.0-30.0) sec D-Dimer 0.60 H (<0.60) mg/L FEU Sodium (137-145) mmol/L Potassium (3.5-5.1) mmol/L Chloride (98-107) mmol/L Carbon Dioxide (22-30) mmol/L Anion Gap mmol/L BUN (7-17) mg/dL Creatinine (0.52-1.04) mg/dL Est GFR (CKD-EPI)AfAm (>60 ml/min/1.73 sqM) Est GFR (CKD-EPI)NonAf (>60 ml/min/1.73 sqM) Glucose (74-99) mg/dL Plasma Lactic Acid Carlos Enrique (0.7-2.0) mmol/L Calcium (8.4-10.2) mg/dL Total Bilirubin (0.2-1.3) mg/dL AST (14-36) U/L ALT (4-34) U/L Alkaline Phosphatase (38-126) U/L Troponin I (0.000-0.034) ng/mL Total Protein (6.3-8.2) g/dL Albumin (3.5-5.0) g/dL Coronavirus (PCR) Not Detected (Not Detectd) 12/26/21 12/26/21 12/26/21 Range/Units 13:25 13:25 13:25 WBC (3.8-10.6) k/uL RBC (3.80-5.40) m/uL Hgb (11.4-16.0) gm/dL Hct (34.0-46.0) % MCV (80.0-100.0) fL MCH (25.0-35.0) pg MCHC (31.0-37.0) g/dL RDW (11.5-15.5) % Plt Count (150-450) k/uL MPV Neutrophils % % Lymphocytes % % Monocytes % % Eosinophils % % Basophils % % Neutrophils # (1.3-7.7) k/uL Lymphocytes # (1.0-4.8) k/uL Monocytes # (0-1.0) k/uL Eosinophils # (0-0.7) k/uL Basophils # (0-0.2) k/uL PT (9.0-12.0) sec INR (<1.2) APTT (22.0-30.0) sec D-Dimer (<0.60) mg/L FEU Sodium 138 (137-145) mmol/L Potassium 4.2 (3.5-5.1) mmol/L Chloride 104 (98-107) mmol/L Carbon Dioxide 28 (22-30) mmol/L Anion Gap 6 mmol/L BUN 12 (7-17) mg/dL Creatinine 0.72 (0.52-1.04) mg/dL Est GFR (CKD-EPI)AfAm >90 (>60 ml/min/1.73 sqM) Est GFR (CKD-EPI)NonAf 80 (>60 ml/min/1.73 sqM) Glucose 132 H (74-99) mg/dL Plasma Lactic Acid Carlos Enrique 1.4 (0.7-2.0) mmol/L Calcium 9.0 (8.4-10.2) mg/dL Total Bilirubin 0.9 (0.2-1.3) mg/dL AST 34 (14-36) U/L ALT 21 (4-34) U/L Alkaline Phosphatase 89 (38-126) U/L Troponin I <0.012 (0.000-0.034) ng/mL Total Protein 7.0 (6.3-8.2) g/dL Albumin 4.2 (3.5-5.0) g/dL Coronavirus (PCR) (Not Detectd) - Radiology Data Radiology results: image reviewed (Chest x-ray shows no acute process) Disposition Clinical Impression: Chest pain, COPD (chronic obstructive pulmonary disease) Disposition: ADMITTED IP TO THIS HOSP Is patient prescribed a controlled substance at d/c from ED?: No Referrals: Antonio Barrow DO [Primary Care Provider] - 1-2 days Decision Time: 14:54
[2021-12-26] MEDS ORDERED: NITROGLYCERIN OINT 1 INCH/GM PACKET TOPICAL STA (13:31)
[2021-12-26] MEDS ORDERED: atenoloL 50 MG TAB PO STA (13:31)
[2021-12-26 13:42] LABS: Basophils # (A) 0.1 k/uL (0-0.2); Basophils % (A) 1 %; Eosinophils # (A) 0.2 k/uL (0-0.7); Eosinophils % (A) 3 %; HCT 50.9 % (34.0-46.0); HGB 16.5 gm/dL (11.4-16.0); Lymphocytes # (A) 0.9 k/uL (1.0-4.8); Lymphocytes % (A) 14 %; MCH 28.2 pg (25.0-35.0); MCHC 32.3 g/dL (31.0-37.0); MCV 87.1 fL (80.0-100.0); Mean Platelet Volume 6.9; Monocytes # (A) 0.4 k/uL (0-1.0); Monocytes % (A) 6 %; Neutrophils % (A) 74 %; Platelet Count 190 k/uL (150-450); RBC 5.85 m/uL (3.80-5.40); RDW 14.6 % (11.5-15.5); WBC 6.7 k/uL (3.8-10.6)
[2021-12-26 14:10] LABS: ALT 21 U/L (4-34); AST 34 U/L (14-36); African American GFR (CKD) >90 (>60 ml/min/1.73 sqM); Albumin 4.2 g/dL (3.5-5.0); Alkaline Phosphatase 89 U/L (38-126); Anion Gap 6 mmol/L; Blood Urea Nitrogen 12 mg/dL (7-17); Carbon Dioxide 28 mmol/L (22-30); Chloride 104 mmol/L (98-107); Glucose 132 mg/dL (74-99); Non-African American GFR(CKD) 80 (>60 ml/min/1.73 sqM); Potassium 4.2 mmol/L (3.5-5.1); Sodium 138 mmol/L (137-145); Total Bilirubin 0.9 mg/dL (0.2-1.3)
[2021-12-26 14:11] LABS: Partial Thromboplastin Time 23.5 sec (22.0-30.0); Prothrombin Time 10.5 sec (9.0-12.0)
--- NOTE | 2021-12-26 14:12 | XR ---
EXAMINATION TYPE: XR chest 2V DATE OF EXAM: 12/26/2021 COMPARISON: Chest x-ray 12/31/2018 HISTORY: Fever and cough TECHNIQUE: Frontal and lateral views of the chest are obtained. FINDINGS: There is no focal air space opacity, pleural effusion, or pneumothorax seen. The cardiac silhouette size is within normal limits. Aorta is dense. There is thoracic spondylosis. The osseous structures are intact. IMPRESSION: No acute cardiopulmonary process.
[2021-12-26] MEDS ORDERED: ASPIRIN 81 MG PO STA (15:02)
[2021-12-26] MEDS ORDERED: methylPREDNISolone SOD SUCCI 125 MG/2 ML VIAL IV STA (15:02)
[2021-12-26] MEDS ORDERED: NITROGLYCERIN SL TABS 0.4 MG TAB SUBLINGUAL PRN (15:02)
[2021-12-26] MEDS ORDERED: IPRATROPIUM-ALBUTEROL 3 ML NEB INHALATION PRN (15:02)
--- NOTE | 2021-12-26 15:42 | P.HPIM ---
History of Present Illness Chief Complaint: Chest pain Patient is 81-year-old female with a past medical history significant for COPD, essential hypertension, hyperlipidemia that presents to Hospital secondary to chest pain and shortness of breath. The chest him again to 3 days ago has not been progressively getting worse and present in the substernal area. She did have one episode where. To the left arm [id number] to come to the emergency department. During my examination she denies any chest pain, any alleviating or exacerbating symptoms. She denies any cardiac history including coronary artery disease or congestive heart failure. Patient does have COPD and increased sputum production which is clear and less than a teaspoon. Patient does not use home oxygen. She is able to complete her day-to-day activities however does get short of breath moving short distances within her home. Collateral information was obtained by daughter present at bedside. Vital signs reviewed patient is currently slightly tachycardic 104 hypertensive at 198/86, CBC reviewed unremarkable, chronic troponins negative 1, EKG reviewed within normal limits. Cardiology of the consult emergency department. Past Medical History Past Medical History: Hyperlipidemia, Hypertension, Sleep Apnea/CPAP/BIPAP Additional Past Medical History / Comment(s): pt states she has mass inbetween her cervix and colon that causes her abd pain, pt states she is scheduled to have a colonoscopy next sunday. kidney stones. JAMES no cpap. shingles. hypoglycemia History of Any Multi-Drug Resistant Organisms: None Reported Past Surgical History: Cholecystectomy, Hysterectomy, Tubal Ligation Additional Past Surgical History / Comment(s): right cataract removal done today (12/31/18) Past Anesthesia/Blood Transfusion Reactions: No Reported Reaction Additional Past Anesthesia/Blood Transfusion Reaction / Comment(s): no blood transfusions. per pt she quit breathing the last time she had surgery. Past Psychological History: No Psychological Hx Reported Smoking Status: Never smoker Past Alcohol Use History: None Reported Past Drug Use History: None Reported Medications and Allergies Home Medications Medication Instructions Recorded Confirmed Type Allopurinol 300 mg PO DAILY 03/08/15 12/26/21 History Atenolol 50 mg PO DAILY 03/08/15 12/26/21 History Triamterene/Hydrochlorothiazid 1 cap PO DAILY 03/08/15 12/26/21 History [Triamterene-Hctz 37.5-25 mg Cp] Calcium Carbonate [Calcium] 600 mg PO DAILY 12/31/18 12/26/21 History Acetaminophen Tab [Tylenol] 500 mg PO Q6HR PRN tab 01/01/19 12/26/21 Rx Aspirin 81 mg PO DAILY chew 01/01/19 12/26/21 Rx Nitroglycerin Sl Tabs [Nitrostat] 0.4 mg SUBLINGUAL Q5M PRN #20 tab 01/01/19 12/26/21 Rx Albuterol Sulfate [Albuterol 2 puff PO RT-Q6H PRN 12/26/21 12/26/21 History Sulfate Hfa] Biotin 5 mg PO DAILY 12/26/21 12/26/21 History Black Weinberg 1 cap PO DAILY 12/26/21 12/26/21 History Cholecalciferol (Vitamin D3) 75 mcg PO DAILY 12/26/21 12/26/21 History [Vitamin D3 (3000 Iu)] Glucos Sul 2Kcl/MSM/Chond/C/Mn 1 cap PO DAILY 12/26/21 12/26/21 History [Glucosamine Chondroitin Cap] Multivitamins, Thera [Multivitamin 1 tab PO DAILY 12/26/21 12/26/21 History (formulary)] Pantoprazole [Protonix] 40 mg PO DAILY 12/26/21 12/26/21 History Potassium Gluconate [Potassium 99 mg PO DAILY 12/26/21 12/26/21 History Gluconate ER] Pravastatin Sodium 80 mg PO DAILY 12/26/21 12/26/21 History Vitamin A [Vitamin A (8,000 Units 2,400 mcg PO DAILY 12/26/21 12/26/21 History = 2,400 MCG)] Allergies Allergy/AdvReac Type Severity Reaction Status Date / Time No Known Allergies Allergy Verified 12/26/21 13:58 Physical Exam Vitals: Vital Signs Temp Pulse Resp BP Pulse Ox 12/26/21 13:20 104 H 20 198/86 97 12/26/21 12:28 102 H 20 222/101 94 L 12/26/21 12:16 99.3 F 98 18 162/71 92 L Intake and Output 12/26/21 12/26/21 12/26/21 06:59 14:59 22:59 Other: Weight 109.769 kg Gen. patient is awake alert oriented 3 Cardiovascular normal S1/S2 heard Respiratory slight decreased breath sounds bilaterally and expiratory wheezing noted currently on 2 L Abdomen soft nontender Extremities no pitting edema Results CBC & Chem 7: 12/26/21 13:25 12/26/21 13:25 Labs: Abnormal Lab Results - Last 24 Hours (Table) 12/26/21 12/26/21 12/26/21 Range/Units 13:25 13:25 13:25 RBC 5.85 H (3.80-5.40) m/uL Hgb 16.5 H (11.4-16.0) gm/dL Hct 50.9 H (34.0-46.0) % Lymphocytes # 0.9 L (1.0-4.8) k/uL D-Dimer 0.60 H (<0.60) mg/L FEU Glucose 132 H (74-99) mg/dL Assessment and Plan Assessment: Assessment #1 chest pain rule out ACS #2 acute hypoxic respiratory distress secondary to COPD exacerbation #3 essential hypertension #4 hyperlipidemia Plan: -Admit to medicine under observation -Aspiration/fall precaution -Continue to monitor cardiac troponin negative 1 -Risk stratify patient with hemoglobin A1c, lipid panel -Regarding COPD start IV prednisone 40 mg daily -We'll add azithromycin for anti-inflammatory properties -DuoNeb's scheduled for the next 24 hours -Due to prophylaxis Lovenox -Disposition despite discharge once cleared by cardiology and respiratory status improves.
[2021-12-26] MEDS: IPRATROPIUM-ALBUTEROL 3 ML NEB INHALATION SCH ×2 (15:52→20:39)
[2021-12-26] MEDS: AZITHROMYCIN 500 MG TAB PO SCH (17:44)
[2021-12-26] MEDS: NITROGLYCERIN OINT 1 INCH/GM PACKET TOPICAL SCH (19:13)
[2021-12-26] MEDS ORDERED: CEFDINIR 300 MG CAP PO SCH (21:00)
[2021-12-26] MEDS ORDERED: methylPREDNISolone SOD SUCCI 125 MG/2 ML VIAL IV SCH (21:00)
[2021-12-26 23:17] LABS: Chol/HDL Ratio 3.57 Ratio; LDL Cholesterol,Calculated 103.6 mg/dL (0.0-131.0)
[2021-12-27] MEDS: methylPREDNISolone SOD SUCCI 40 MG/ML 1 ML VIAL IV SCH ×2 (00:36→09:12)
[2021-12-27] MEDS: NITROGLYCERIN OINT 1 INCH/GM PACKET TOPICAL SCH ×2 (00:44→05:51)
[2021-12-27] MEDS: IPRATROPIUM-ALBUTEROL 3 ML NEB INHALATION SCH ×2 (07:14→11:18)
[2021-12-27 08:25] VITALS: BP 161/67; RESP 17; TEMP 97.5
[2021-12-27] MEDS ORDERED: amLODIPine 5 MG TAB PO SCH (09:00)
[2021-12-27] MEDS ORDERED: ASPIRIN 81 MG PO SCH ×2 (09:00→09:45)
[2021-12-27] MEDS ORDERED: ASPIRIN 325 MG TAB PO SCH (09:00)
[2021-12-27] MEDS: AZITHROMYCIN 500 MG TAB PO SCH (09:12)
--- NOTE | 2021-12-27 09:44 | P.CRDCN ---
History of Present Illness Consult date: 12/27/21 History of present illness: HISTORY OF PRESENT ILLNESS: This is a 81 year old female with a past medical history significant for COPD, hypertension, hyperlipidemia, and former nicotine dependence. Patient follows in the office with Dr. Guerrero. We have been asked to see the patient in consultation for chest pain. Patient examined at the bedside. Patient presented to the hospital with a chief complaint of SOB. She reports she has been coughing a lot at home and when she coughs, she was experiencing chest discomfort. She denies any chest pain or pressure this morning. She states her shortness of breath has also improved. Patients blood pressure was elevated yesterday with a SBP around 200. * EKG reveals sinus mechanism with no signs of acute ischemia * Chest xray negative for acute process * Laboratory data: WBC 6.7. Hemoglobin 16.5. Platelet count 190. D-dimer 0.60. Sodium 138. Potassium 4.2. BUN 12. Creatinine 0.72. Troponin ne gative 3 * Current home cardiac medications include pravastatin 80 mg daily, Triamterene/HCTZ 37.5-25mg daily, atenolol 50 mg daily, aspirin 81 mg daily * Most recent echocardiogram obtained in December 2018 revealed ejection fraction 55-60%, mild aortic regurgitation, trace to mild MR, trace TR, and moderate pulmonary hypertension REVIEW OF SYSTEMS: At the time of my exam: CONSTITUTIONAL: Denies fever or chills. HEENT: Denies blurred vision, vision changes, or eye pain. Denies hemoptysis CARDIOVASCULAR: Denies chest pain. Denies orthopnea. Denies PND. Denies pal pitations RESPIRATORY: + shortness of breath. GASTROINTESTINAL: Denies abdominal pain. Denies nausea or vomiting. HEMATOLOGIC: Denies bleeding disorders. GENITOURINARY: Denies any blood in urine. SKIN: Denies pruitis. Denies rash. PHYSICAL EXAM: VITAL SIGNS: Reviewed. GENERAL: Well-developed in no acute distress. HEENT: Head is normocephalic. Pupils are equal, round. Sclerae anicteric. Mucous membranes of the mouth are moist. Neck supple. No JVD or thyromegaly LUNGS: Respirations even and unlabored. Lungs diminished with wheezing noted. HEART: Regular rate and rhythm. S1 and S2 heard. ABDOMEN: Soft. Nondistended. Nontender. EXTREMITIES: Normal range of motion. No clubbing or cyanosis. Peripheral pulses intact. Trace bilateral lower extremity edema NEUROLOGIC: Awake and alert. Oriented x 3. ASSESSMENT: Chest pain, atypical, troponin negative x 3 Acute COPD exacerbation Hypertension, uncontrolled on admission Hyperlipidemia Former nicotine dependence PLAN: An acute coronary event has been ruled out Add amlodipine 5 mg daily for optimal blood pressure control Obtain 2-D echo to assess cardiac structure and function Consult pulmonary for evaluation No further inpatient recommendations from a cardiac standpoint Patient may follow up with Dr. Guerrero outpatient for stress testing Further recommendations for inpatient course Nurse practitioner note has been reviewed by physician. Signing provider agrees with the documented findings, assessment, and plan of care. Past Medical History Past Medical History: Hyperlipidemia, Hypertension, Sleep Apnea/CPAP/BIPAP Additional Past Medical History / Comment(s): pt states she has mass inbetween her cervix and colon that causes her abd pain, pt states she is scheduled to have a colonoscopy next sunday. kidney stones. JAMES no cpap. shingles. hypoglycemia History of Any Multi-Drug Resistant Organisms: None Reported Past Surgical History: Cholecystectomy, Hysterectomy, Tubal Ligation Additional Past Surgical History / Comment(s): right cataract removal (12/31/18) Past Anesthesia/Blood Transfusion Reactions: No Reported Reaction Additional Past Anesthesia/Blood Transfusion Reaction / Comment(s): no blood transfusions. per pt she quit breathing the last time she had surgery. Past Psychological History: No Psychological Hx Reported Smoking Status: Never smoker Past Alcohol Use History: None Reported Past Drug Use History: None Reported Medications and Allergies Home Medications Medication Instructions Recorded Confirmed Type Allopurinol 300 mg PO DAILY 03/08/15 12/26/21 History Atenolol 50 mg PO DAILY 03/08/15 12/26/21 History Triamterene/Hydrochlorothiazid 1 cap PO DAILY 03/08/15 12/26/21 History [Triamterene-Hctz 37.5-25 mg Cp] Calcium Carbonate [Calcium] 600 mg PO DAILY 12/31/18 12/26/21 History Acetaminophen Tab [Tylenol] 500 mg PO Q6HR PRN tab 01/01/19 12/26/21 Rx Aspirin 81 mg PO DAILY chew 01/01/19 12/26/21 Rx Nitroglycerin Sl Tabs [Nitrostat] 0.4 mg SUBLINGUAL Q5M PRN #20 tab 01/01/19 12/26/21 Rx Albuterol Sulfate [Albuterol 2 puff PO RT-Q6H PRN 12/26/21 12/26/21 History Sulfate Hfa] Biotin 5 mg PO DAILY 12/26/21 12/26/21 History Black Weinberg 1 cap PO DAILY 12/26/21 12/26/21 History Cholecalciferol (Vitamin D3) 75 mcg PO DAILY 12/26/21 12/26/21 History [Vitamin D3 (3000 Iu)] Glucos Sul 2Kcl/MSM/Chond/C/Mn 1 cap PO DAILY 12/26/21 12/26/21 History [Glucosamine Chondroitin Cap] Multivitamins, Thera [Multivitamin 1 tab PO DAILY 12/26/21 12/26/21 History (formulary)] Pantoprazole [Protonix] 40 mg PO DAILY 12/26/21 12/26/21 History Potassium Gluconate [Potassium 99 mg PO DAILY 12/26/21 12/26/21 History Gluconate ER] Pravastatin Sodium 80 mg PO DAILY 12/26/21 12/26/21 History Vitamin A [Vitamin A (8,000 Units 2,400 mcg PO DAILY 12/26/21 12/26/21 History = 2,400 MCG)] Allergies Allergy/AdvReac Type Severity Reaction Status Date / Time No Known Allergies Allergy Verified 12/26/21 13:58 Physical Exam Vitals: Vital Signs Temp Pulse Pulse Resp BP BP BP 12/27/21 07:30 64 12/27/21 07:15 66 12/27/21 07:10 97.5 F L 57 L 17 161/67 12/27/21 01:00 98.1 F 75 18 155/66 12/26/21 22:46 99.3 F 77 20 143/72 12/26/21 21:37 77 20 143/72 12/26/21 20:48 66 12/26/21 20:39 63 12/26/21 17:46 63 20 140/62 12/26/21 16:01 68 12/26/21 15:52 62 12/26/21 13:20 104 H 20 198/86 12/26/21 12:28 102 H 20 222/101 12/26/21 12:16 99.3 F 98 18 162/71 Pulse Ox 12/27/21 07:30 12/27/21 07:15 98 12/27/21 07:10 94 L 12/27/21 01:00 97 12/26/21 22:46 100 12/26/21 21:37 100 12/26/21 20:48 12/26/21 20:39 12/26/21 17:46 96 12/26/21 16:01 12/26/21 15:52 12/26/21 13:20 97 12/26/21 12:28 94 L 12/26/21 12:16 92 L Intake and Output 12/26/21 12/27/21 12/27/21 22:59 06:59 14:59 Other: # Voids 1 Weight 109.769 kg Results 12/26/21 13:25 12/26/21 13:25 Cardiac Enzymes 12/26/21 12/26/21 12/26/21 Range/Units 13:25 13:25 15:57 AST 34 (14-36) U/L Troponin I <0.012 <0.012 (0.000-0.034) ng/mL 12/26/21 Range/Units 19:54 AST (14-36) U/L Troponin I <0.012 (0.000-0.034) ng/mL Coagulation 12/26/21 Range/Units 13:25 PT 10.5 (9.0-12.0) sec APTT 23.5 (22.0-30.0) sec Lipids 12/26/21 Range/Units 15:57 Triglycerides 108.00 (0.00-149.00) mg/dL Cholesterol 174.00 (0.00-200.00) mg/dL HDL Cholesterol 48.80 (40.00-60.00) mg/dL Cholesterol/HDL Ratio 3.57 Ratio CBC 12/26/21 Range/Units 13:25 WBC 6.7 (3.8-10.6) k/uL RBC 5.85 H (3.80-5.40) m/uL Hgb 16.5 H (11.4-16.0) gm/dL Hct 50.9 H (34.0-46.0) % Plt Count 190 (150-450) k/uL Comprehensive Metabolic Panel 12/26/21 Range/Units 13:25 Sodium 138 (137-145) mmol/L Potassium 4.2 (3.5-5.1) mmol/L Chloride 104 (98-107) mmol/L Carbon Dioxide 28 (22-30) mmol/L BUN 12 (7-17) mg/dL Creatinine 0.72 (0.52-1.04) mg/dL Glucose 132 H (74-99) mg/dL Calcium 9.0 (8.4-10.2) mg/dL AST 34 (14-36) U/L ALT 21 (4-34) U/L Alkaline Phosphatase 89 (38-126) U/L Total Protein 7.0 (6.3-8.2) g/dL Albumin 4.2 (3.5-5.0) g/dL Current Medications Generic Name Dose Route Start Last Admin Trade Name Freq PRN Reason Stop Dose Admin Albuterol/Ipratropium 3 ml 12/26/21 16:00 12/27/21 07:14 Ipratropium-Albuterol 3 Ml Neb INHALATION 3 ml RT-QID ITALIA Administration Albuterol/Ipratropium 3 ml 12/26/21 15:02 Ipratropium-Albuterol 3 Ml Neb INHALATION RT-Q4H PRN Shortness Of Breath Or Wheezing Amlodipine Besylate 5 mg 12/27/21 09:00 12/27/21 09:12 Amlodipine 5 Mg Tab PO 5 mg DAILY ITALIA Administration Aspirin 81 mg 12/27/21 09:00 12/27/21 09:13 Aspirin 81 Mg PO 81 mg DAILY ITALIA Administration Azithromycin 500 mg 12/26/21 16:00 12/27/21 09:12 Azithromycin 500 Mg Tab PO 12/30/21 09:01 500 mg DAILY ITALIA Administration Protocol Methylprednisolone Sodium Succinate 40 mg 12/27/21 00:00 12/27/21 09:12 Methylprednisolone Sod Succi 40 Mg/Ml 1 Ml Vial IV 40 mg Q8HR ITALIA Administration Nitroglycerin 0.4 mg 12/26/21 15:02 Nitroglycerin Sl Tabs 0.4 Mg Tab SUBLINGUAL Q5M PRN Chest Pain Intake and Output 12/26/21 12/27/21 12/27/21 22:59 06:59 14:59 Other: # Voids 1 Weight 109.769 kg 12/26/21 13:25 12/26/21 13:25
[2021-12-27] MEDS ORDERED: TRIAMTERENE-HCTZ 37.5-25MG 1 EACH CAP PO SCH (09:45)
[2021-12-27] MEDS ORDERED: atenoloL 50 MG TAB PO SCH (09:45)
[2021-12-27 10:42] LABS: Basophils # (A) 0.01 X 10*3/uL (0.00-0.10); Basophils % (A) 0.1 %; Eosinophils # (A) 0 X 10*3/uL (0.04-0.35); Eosinophils % (A) 0 %; HCT 48.8 % (37.2-46.3); HGB 15.3 g/dL (12.0-15.0); Immature Grans, Automated 0.5 %; Lymphocytes # (A) 0.82 X 10*3/uL (0.90-5.00); Lymphocytes % (A) 10.7 %; MCH 27.2 pg (27.0-32.0); MCHC 31.4 g/dL (32.0-37.0); MCV 86.8 fL (80.0-97.0); Mean Platelet Volume 9.8 fL (9.5-12.2); Monocytes # (A) 0.25 X 10*3/uL (0.20-1.00); Monocytes % (A) 3.3 %; NRBC Per 100 WBC 0 /100 WBCS (0.0-0.0); Neutrophils # (A) 6.51 X 10*3/uL (1.80-7.70); Neutrophils % (A) 85.4 %; Platelet Count 231 X 10*3/uL (140-440); RBC 5.62 X 10*6/uL (4.10-5.20); RDW 14.6 % (11.5-14.5); WBC 7.63 X 10*3/uL (4.50-10.00)
[2021-12-27 10:53] LABS: African American GFR (CKD) 80.1 (60.0-200.0); BUN/Creat Ratio 19.13 Ratio (12.00-20.00); Blood Urea Nitrogen 15.3 mg/dL (9.0-27.0); Calcium 9.4 mg/dL (8.7-10.3); Carbon Dioxide 22.9 mmol/L (20.0-27.5); Chloride 101 mmol/L (96-109); Glucose 210 mg/dL (70-110); LDL Cholesterol,Calculated 118.7 mg/dL (0.0-131.0); Non-African American GFR(CKD) 69.1 (60.0-200.0); Potassium 4.7 mmol/L (3.5-5.5); Sodium 138 mmol/L (135-145); VLDL Calculation 19.08 mg/dL (5.00-40.00)
--- NOTE | 2021-12-27 11:06 | ECHOF ---
Referral Reason:chest pain MEASUREMENTS -------- HEIGHT: 160.0 cm WEIGHT: 109.8 kg BP: IVSd: 1.5 cm (0.6 - 1.1) LVIDd: 3.0 cm (3.9 - 5.3) LVPWd: 1.5 cm (0.6 - 1.1) IVSs: 2.2 cm LVIDs: 1.2 cm LVPWs: 2.1 cm Ao Diam: 2.9 cm (2.0 - 3.7) LA Diam: 3.6 cm (2.7 - 3.8) MV EXCURSION: 10.152 mm (> 18.000) MV EF SLOPE: 62 mm/s (70 - 150) EPSS: 0.4 cm MV E Abhijit: 0.87 m/s MV DecT: 207 ms MV A Abhijit: 1.16 m/s MV E/A Ratio: 0.75 RAP: 5.00 mmHg RVSP: 11.24 mmHg FINDINGS -------- This was a technically difficult study with suboptimal views. The left ventricular size is normal. There is moderate concentric left ventricular hypertrophy. O verall left ventricular systolic function is normal with, an EF between 55 - 60 %. The RV was not well visualized. The left atrial size is normal. The right atrial size is normal. Lumason used The aortic valve was not well visualized. The mitral valve is normal. There is trace mitral regurgitation. The tricuspid valve appears structurally normal. Trace tricuspid regurgitation present. Right sincere tricular systolic pressure is normal at < 35 mmHg. The pulmonic valve was not well visualized. The aortic root size is normal. IVC Not well visulized. There is no pericardial effusion. CONCLUSIONS -------- 1. The left ventricular size is normal. 2. There is moderate concentric left ventricular hypertrophy. 3. Overall left ventricular systolic function is normal with, an EF between 55 - 60 %. 4. Lumason used 5. There is trace mitral regurgitation. 6. Trace tricuspid regurgitation present. 7. There is no pericardial effusion. L[employer]ER PRINT OPERATOR: Janine Weller, [facility]
[2021-12-27 11:35] VITALS: PULSE 66
--- NOTE | 2021-12-27 11:43 | P.DS ---
Providers Date of admission: 12/26/21 15:04 Expected date of discharge: 12/27/21 Attending physician: Myles Romo MD Consults: 12/27/21 08:07 Consult Physician Routine Consulting Provider: Elaine Condon Consult Reason/Comments: COPD Do you want consulting provider notified?: Yes Primary care physician: [facility] Course: Discharge Diagnosis: COPD exacerbation, patient with advanced COPD now requiring home oxygen and nebulizer usage. Patient discharged home on remaining 5 day dose of Zithromax along with prednisone 50 mg daily 5 days. Patient started on Symbicort along with scheduled and as needed DuoNeb's. Hypertension Hyperlipidemia Hospital Course: Patient is a very pleasant 81-year-old female with a past medical history of emphysema, hypertension, and hyperlipidemia. She presented to the emergency department 12/26/21 with a chief complaint of increased shortness of breath. A chest x-ray was completed and negative for acute cardiopulmonary process. An EKG was completed showing sinus rhythm at 99 bpm with no noted T-wave or ST abnormalities. Echocardiogram showing normal EF between 55 and 60% with no significant valvular abnormalities. Labs revealed elevated hemoglobin of 16.5 otherwise normal findings including troponin trended 3 all negative at less than 0.012. Lipid profile unremarkable. Hemoglobin A1c was slightly elevated at 6.4%. Patient educated on lifestyle and diet modifications/changes. Patient was evaluated by cardiology and pulmonology. Patient was started on antibiotics and steroids. She was treated with supplemental oxygen. She underwent home oxygen evaluation. Patient was found to be hypoxic with ambulation with O2 sats on room air decreasing to 85% requiring oxygen supplementation of 3 L to maintain SpO2 greater than 92%. Patient will require home nebulizers as well as and home oxygen as patient has advanced COPD and desaturates down to 85% on room air with ambulation requiring oxygen supplementation. Arrangements have been made for patient to receive home oxygen. Patient also started on Symbicort she is medically stable for discharge home on oxygen and being discharged home with prescriptions for remaining 5 day course of Zithromax along with a 5 day course of prednisone 50 mg daily 5 days, Symbicort, and duo nebs.. Patient to follow up outpatient with her PCP, cardiology, and pulmonology. Patient seen and examined at bedside. discussed with patient plan of care and all questions were answered. Patient in agreement with discharge home on oxygen and understanding of importance of use at all times with ambulation. Discussed importance of DuoNeb use and initiation of Symbicort. Patient to follow-up outpatient with associate field service engineer and caseworker. Patient denies having any complaints or needs at this time and denies any further questions. Patient medically stable for discharge. Vital signs reviewed and stable. General: Nontoxic, no distress and appears stated age. Derm: Skin warm and dry, normal coloration for ethnicity. Head: Atraumatic, normocephalic and symmetric. Eyes: EOMs intact, no lid lag, and anicteric sclera Mouth: no lip lesions, mucus membranes moist Cardiovascular: regular rate and rhythm with normal S1S2, no murmur, positive posterior tibial pulses bilaterally, and cap refill < 2 seconds. Lungs: Respirations even, regular, and unlabored 2 L O2 via nasal cannula. Lungs diminished with diffuse bilateral expiratory wheezes. No rales, rhonchi, crackles, or accessory muscle usage. Abdominal: soft, nontender to palpation, no guarding, no appreciable organomegaly Ext: ROM intact. No gross muscle atrophy, no edema, no contractures Neuro: Speech clear, face symmetrical and CN II-XII grossly intact with no noted focal neuro deficits Psych: Alert and oriented to person, place, time, and situation. Appropriate and pleasant affect. A total of 39 minutes of time were spent preparing this complex discharge summary. Patient Condition at Discharge: Stable Plan - Discharge Summary New Discharge Prescriptions: New Ipratropium-Albuterol Nebulize [Duoneb 0.5 mg-3 mg/3 ml Soln] 3 ml INHALATION RT-Q4H PRN #500 ml PRN Reason: Shortness Of Breath Or Wheezing amLODIPine [Norvasc] 5 mg PO DAILY 30 Days #30 tab Budesonide-Formot 160-4.5 Mcg [Symbicort 160-4.5 Mcg Inhaler] 2 puff INHALATION BID #1 each predniSONE 50 mg PO DAILY 5 Days #5 tablet Azithromycin [Zithromax] 500 mg PO DAILY 3 Days #3 tab Continue Triamterene/Hydrochlorothiazid [Triamterene-Hctz 37.5-25 mg Cp] 1 cap PO DAILY Atenolol 50 mg PO DAILY Allopurinol 300 mg PO DAILY Calcium Carbonate [Calcium] 600 mg PO DAILY Aspirin 81 mg PO DAILY chew Nitroglycerin Sl Tabs [Nitrostat] 0.4 mg SUBLINGUAL Q5M PRN #20 tab PRN Reason: Chest Pain Acetaminophen Tab [Tylenol] 500 mg PO Q6HR PRN tab PRN Reason: Fever And/ Or Pain Multivitamins, Thera [Multivitamin (formulary)] 1 tab PO DAILY Cholecalciferol (Vitamin D3) [Vitamin D3 (3000 Iu)] 75 mcg PO DAILY Black Weinberg 1 cap PO DAILY Albuterol Sulfate [Albuterol Sulfate Hfa] 2 puff PO RT-Q6H PRN PRN Reason: Shortness Of Breath Vitamin A [Vitamin A (8,000 Units = 2,400 MCG)] 2,400 mcg PO DAILY Potassium Gluconate [Potassium Gluconate ER] 99 mg PO DAILY Biotin 5 mg PO DAILY Pravastatin Sodium 80 mg PO DAILY Pantoprazole [Protonix] 40 mg PO DAILY Glucos Sul 2Kcl/MSM/Chond/C/Mn [Glucosamine Chondroitin Cap] 1 cap PO DAILY Discharge Medication List Allopurinol 300 mg PO DAILY 03/08/15 [History] Atenolol 50 mg PO DAILY 03/08/15 [History] Triamterene/Hydrochlorothiazid [Triamterene-Hctz 37.5-25 mg Cp] 1 cap PO DAILY 03/08/15 [History] Calcium Carbonate [Calcium] 600 mg PO DAILY 12/31/18 [History] Acetaminophen Tab [Tylenol] 500 mg PO Q6HR PRN tab 01/01/19 [Rx] Aspirin 81 mg PO DAILY chew 01/01/19 [Rx] Nitroglycerin Sl Tabs [Nitrostat] 0.4 mg SUBLINGUAL Q5M PRN #20 tab 01/01/19 [Rx] Albuterol Sulfate [Albuterol Sulfate Hfa] 2 puff PO RT-Q6H PRN 12/26/21 [History] Biotin 5 mg PO DAILY 12/26/21 [History] Black Weinberg 1 cap PO DAILY 12/26/21 [History] Cholecalciferol (Vitamin D3) [Vitamin D3 (3000 Iu)] 75 mcg PO DAILY 12/26/21 [History] Glucos Sul 2Kcl/MSM/Chond/C/Mn [Glucosamine Chondroitin Cap] 1 cap PO DAILY 12/26/21 [History] Multivitamins, Thera [Multivitamin (formulary)] 1 tab PO DAILY 12/26/21 [Hi story] Pantoprazole [Protonix] 40 mg PO DAILY 12/26/21 [History] Potassium Gluconate [Potassium Gluconate ER] 99 mg PO DAILY 12/26/21 [History] Pravastatin Sodium 80 mg PO DAILY 12/26/21 [History] Vitamin A [Vitamin A (8,000 Units = 2,400 MCG)] 2,400 mcg PO DAILY 12/26/21 [History] Azithromycin [Zithromax] 500 mg PO DAILY 3 Days #3 tab 12/27/21 [Rx] Budesonide-Formot 160-4.5 Mcg [Symbicort 160-4.5 Mcg Inhaler] 2 puff INHALATION BID #1 each 12/27/21 [Rx] Ipratropium-Albuterol Nebulize [Duoneb 0.5 mg-3 mg/3 ml Soln] 3 ml INHALATION RT-Q4H PRN #500 ml 12/27/21 [Rx] amLODIPine [Norvasc] 5 mg PO DAILY 30 Days #30 tab 12/27/21 [Rx] predniSONE 50 mg PO DAILY 5 Days #5 tablet 12/27/21 [Rx] Follow up Appointment(s)/Referral(s): Bernardo Gurerero MD [STAFF PHYSICIAN] - 1 Week Antonio Barrow DO [Primary Care Provider] - 1-2 days [facility] [NON-STAFF] - As Needed (Supplier of home oxygen and a nebulizer) Patient Instructions/Handouts: Using Oxygen at Home (DC) Activity/Diet/Wound Care/Special Instructions: Activity: As tolerated. Take breaks as needed. Diet: Heart healthy and carb consistent diet. Avoid salts, or foods with hidden salts such as canned or boxed foods and frozen dinners. Extra salt makes your heart work harder and traps the fluid in your body for longer. Special Instructions: Take all of your medications as directed and remember to keep all of your doctor's appointments and follow-up as needed. It is important to wear oxygen at all times when ambulating. Thank you for allowing us to participate in your care, it was truly a pleasure having you for our patient!!! Discharge Disposition: HOME SELF-CARE
--- NOTE | 2021-12-27 12:00 | P.CNPUL ---
History of Present Illness Consult date: 12/27/21 Requesting physician: Marcos Hansen Reason for consult: dyspnea, COPD Chief complaint: Shortness of breath, cough, congestion History of present illness: This is a very pleasant 81-year-old female patient with history of hypertension, hyperlipidemia, obstructive sleep apnea intolerant to CPAP, former smoker of 30 years however quit many years ago. She had been seen by Dr. Condon years ago and was prescribed Advair and albuterol however she didn't follow-up after her prescriptions ran out. She presented here to the emergency room on yesterday with complaints of chest discomfort and cough for the past week or so. No fever chills. Cough is nonproductive. Dry. He had any fever, chills or night sweats. She had been seen and evaluated by cardiology. Echocardiogram revealed preserved left ventricular systolic function with moderate LVH. No significant valvular abnormalities. Troponins were negative 3. Chest x-ray revealed no acute pulmonary process. White count 7.3. Hemoglobin 15.3. Sodium 138. Potassium 4.7. BUN 15. Creatinine 0.8. Mosqueda virus by PCR not detected. She is seen today in consultation on the regular medical floor. Currently sitting up at the bedside. Awake and alert in no acute distress. She has a dry nonproductive cough. She is maintaining O2 saturations in the low 90s on 3 L/m per nasal cannula. On room air she was 86%. She was initiated on DuoNeb inhalations, IV Solu-Medrol. Review of Systems REVIEW OF SYSTEMS: CONSTITUTIONAL: Denies any recent significant weight loss or weight gain. EYES: Denies change in vision. EARS, NOSE, MOUTH, THROAT: Denies headaches, denies sore throat. CARDIOVASCULAR: Positive for chest pain, no palpitations or syncopal episodes. RESPIRATORY: Positive for shortness of breath, cough, congestion no hemoptysis. GASTROINTESTINAL: Denies change in appetite, denies abdominal pain GENITOURINARY: Denies hematuria, denies infections. MUSKULOSKELETAL: Denies pain, denies swelling. INTEGUMENTARY: Denies rash, denies eczema. NEUROLOGICAL: Denies recent memory loss, no recent seizure activity. PSYCHIATRIC: Denies anxiety, denies depression. HEMATOLOGIC/LYMPHATIC: Denies anemia, denies enlarged lymph nodes. Past Medical History Past Medical History: Hyperlipidemia, Hypertension, Sleep Apnea/CPAP/BIPAP Additional Past Medical History / Comment(s): pt states she has mass inbetween her cervix and colon that causes her abd pain, pt states she is scheduled to have a colonoscopy next sunday. kidney stones. JAMES no cpap. shingles. hypoglycemia History of Any Multi-Drug Resistant Organisms: None Reported Past Surgical History: Cholecystectomy, Hysterectomy, Tubal Ligation Additional Past Surgical History / Comment(s): right cataract removal (12/31/18) Past Anesthesia/Blood Transfusion Reactions: No Reported Reaction Additional Past Anesthesia/Blood Transfusion Reaction / Comment(s): no blood transfusions. per pt she quit breathing the last time she had surgery. Past Psychological History: No Psychological Hx Reported Smoking Status: Never smoker Past Alcohol Use History: None Reported Past Drug Use History: None Reported Medications and Allergies Home Medications Medication Instructions Recorded Confirmed Type Allopurinol 300 mg PO DAILY 03/08/15 12/26/21 History Atenolol 50 mg PO DAILY 03/08/15 12/26/21 History Triamterene/Hydrochlorothiazid 1 cap PO DAILY 03/08/15 12/26/21 History [Triamterene-Hctz 37.5-25 mg Cp] Calcium Carbonate [Calcium] 600 mg PO DAILY 12/31/18 12/26/21 History Acetaminophen Tab [Tylenol] 500 mg PO Q6HR PRN tab 01/01/19 12/26/21 Rx Aspirin 81 mg PO DAILY chew 01/01/19 12/26/21 Rx Nitroglycerin Sl Tabs [Nitrostat] 0.4 mg SUBLINGUAL Q5M PRN #20 tab 01/01/19 12/26/21 Rx Albuterol Sulfate [Albuterol 2 puff PO RT-Q6H PRN 12/26/21 12/26/21 History Sulfate Hfa] Biotin 5 mg PO DAILY 12/26/21 12/26/21 History Black Weinberg 1 cap PO DAILY 12/26/21 12/26/21 History Cholecalciferol (Vitamin D3) 75 mcg PO DAILY 12/26/21 12/26/21 History [Vitamin D3 (3000 Iu)] Glucos Sul 2Kcl/MSM/Chond/C/Mn 1 cap PO DAILY 12/26/21 12/26/21 History [Glucosamine Chondroitin Cap] Multivitamins, Thera [Multivitamin 1 tab PO DAILY 12/26/21 12/26/21 History (formulary)] Pantoprazole [Protonix] 40 mg PO DAILY 12/26/21 12/26/21 History Potassium Gluconate [Potassium 99 mg PO DAILY 12/26/21 12/26/21 History Gluconate ER] Pravastatin Sodium 80 mg PO DAILY 12/26/21 12/26/21 History Vitamin A [Vitamin A (8,000 Units 2,400 mcg PO DAILY 12/26/21 12/26/21 History = 2,400 MCG)] Allergies Allergy/AdvReac Type Severity Reaction Status Date / Time No Known Allergies Allergy Verified 12/26/21 13:58 Physical Exam Vitals: Vital Signs Temp Pulse Pulse Pulse Resp BP BP 12/27/21 11:48 12/27/21 11:32 66 12/27/21 11:20 69 12/27/21 10:27 95 12/27/21 07:30 64 12/27/21 07:15 66 12/27/21 07:10 97.5 F L 57 L 17 161/67 12/27/21 01:00 98.1 F 75 18 12/26/21 22:46 99.3 F 77 20 143/72 12/26/21 21:37 77 20 143/72 12/26/21 20:48 66 12/26/21 20:39 63 12/26/21 17:46 63 20 140/62 12/26/21 16:01 68 12/26/21 15:52 62 12/26/21 13:20 104 H 20 198/86 12/26/21 12:28 102 H 20 222/101 12/26/21 12:16 99.3 F 98 18 162/71 BP Pulse Ox Pulse Ox Pulse Ox Pulse Ox 12/27/21 11:48 93 L 91 L 86 L 12/27/21 11:32 12/27/21 11:20 12/27/21 10:27 85 L 12/27/21 07:30 12/27/21 07:15 98 12/27/21 07:10 94 L 12/27/21 01:00 155/66 97 12/26/21 22:46 100 12/26/21 21:37 100 12/26/21 20:48 12/26/21 20:39 12/26/21 17:46 96 12/26/21 16:01 12/26/21 15:52 12/26/21 13:20 97 12/26/21 12:28 94 L 12/26/21 12:16 92 L Intake and Output 12/26/21 12/27/21 12/27/21 22:59 06:59 14:59 Other: # Voids 1 Weight 109.769 kg GENERAL EXAM: Alert, active, pleasant 81 year old female patient, on 3 L nasal cannula, comfortable in no apparent distress. HEAD: Normocephalic. EYES: Normal reaction of pupils, equal size. NOSE: Clear with pink turbinates. THROAT: No erythema or exudates. NECK: No masses, no JVD. CHEST: No chest wall deformity. LUNGS: Equal air entry with faint index Vicente wheeze, diminished. CVS: S1 and S2 normal with no audible murmur, regular rhythm. ABDOMEN: No hepatosplenomegaly, normal bowel sounds, no guarding or rigidity. SPINE: No scoliosis or deformity SKIN: No rashes. Chronic discoloration CENTRAL NERVOUS SYSTEM: No focal deficits, tone is normal in all 4 extremities. EXTREMITIES: There is no peripheral edema. No clubbing, no cyanosis. Peripheral pulses are intact. Results - Laboratory Findings CBC and BMP: 12/27/21 07:13 12/27/21 07:13 PT/INR, D-dimer PT 10.5 sec (9.0-12.0) 12/26/21 13:25 INR 1.0 (<1.2) 12/26/21 13:25 D-Dimer 0.60 mg/L FEU (<0.60) H 12/26/21 13:25 Abnormal lab findings: Abnormal Labs 12/26/21 12/26/21 12/26/21 13:25 13:25 13:25 RBC 5.85 H Hgb 16.5 H Hct 50.9 H MCHC RDW Lymphocytes # 0.9 L Eosinophils # D-Dimer 0.60 H Glucose 132 H Hemoglobin A1c 12/26/21 12/27/21 12/27/21 15:57 07:13 07:13 RBC 5.62 H Hgb 15.3 H Hct 48.8 H MCHC 31.4 L RDW 14.6 H Lymphocytes # 0.82 L Eosinophils # 0 L D-Dimer Glucose 210 H Hemoglobin A1c 6.4 H - Diagnostic Findings Chest x-ray: image reviewed Assessment and Plan Assessment: 1 Acute exacerbation of chronic obstructive pulmonary disease without evidence of pneumonia 2 Remote 30 year history of chronic tobacco dependence had previously been on Advair and albuterol in the outpatient setting 3 Obesity 4 History of obstructive sleep apnea, intolerant to CPAP 5 Hypertension 6 Hyperlipidemia 7 History of gout Plan: The patient was seen and evaluated Chest x-ray and labs reviewed May qualify for home oxygen Recommend Symbicort, albuterol Recommend DuoNeb inhalations as needed with nebulizer Follow-up in our office in 1-2 weeks' We'll perform pulmonary function testing and make further recommendations based on her clinical status I have personally seen and examined the patient, performed the documentation and the assessment and plan as written. Number of minutes spent on the visit: 20.
[2021-12-28] MEDS ORDERED: PRAVASTATIN SODIUM 80 MG TAB PO SCH (09:00)
== END 2021-12-27 15:22 | disposition home or self-care (01) ==
LOC: EC 12:14 → 6NMEDSUR 15:04
PROVIDERS: ADMIT Internal Medicine; ATTEND Internal Medicine
DX: R07.89 Other chest pain (principal); R06.03 Acute respiratory distress; J43.9 Emphysema, unspecified; I11.9 Hypertensive heart disease without heart failure; R09.02 Hypoxemia; I27.20 Pulmonary hypertension, unspecified; E78.5 Hyperlipidemia, unspecified; G47.33 Obstructive sleep apnea (adult) (pediatric); E16.2 Hypoglycemia, unspecified; R19.00 Intra-abdominal and pelvic swelling, mass and lump, unspecified site; M10.9 Gout, unspecified; E66.9 Obesity, unspecified; Z68.41 Body mass index [BMI] 40.0-44.9, adult; Z20.822 Contact with and (suspected) exposure to COVID-19; Z79.82 Long term (current) use of aspirin; Z79.899 Other long term (current) drug therapy; Z87.442 Personal history of urinary calculi; Z86.19 Personal history of other infectious and parasitic diseases; Z90.710 Acquired absence of both cervix and uterus; Z90.49 Acquired absence of other specified parts of digestive tract; Z98.51 Tubal ligation status; Z98.41 Cataract extraction status, right eye; Z87.891 Personal history of nicotine dependence
CPT/HCPCS: 96376; 96374; 99285; 36415; 94640 ×4; 94760; 93005; 85379; 80061 ×2; 80053; 80048; 83605; 84484; 85025 ×2; 85610; 85730; 87040; 83036; 87635; 71046; G0378 ×2; C8929; J2920; J2930; Q9950; 93306

== ENCOUNTER → 2023-02-16 | Outpatient (CLI) | payer MEDICARE ==
--- NOTE | 2023-02-19 09:15 | MM ---
Reason for Exam: Screening (asymptomatic). Last mammogram was performed 4 year(s) and 1 month(s) ago. Patient History: Menarche at age 12. First Full-Term at age 24. Left ovary removed at age 41. Right ovary removed at age 41. Hysterectomy at age 41. Postmenopausal. Core Biopsy on the Left side. 08/13/2000, Benign Stereotactic Core Biopsy on the left side. Sister (sparkle) had breast cancer, age 45. Sister (mary) had breast cancer, age 55. Sister (huber) had breast cancer, age 48. Risk Values: Arielle 5 year model risk: 9.4%. NCI Lifetime model risk: 12.3%. Prior Study Comparison: 02/07/2016 Bilateral Screening Mammogram, [facility]. 05/07/2017 Bilateral Screening Mammogram, [facility]. 01/13/2019 Bilateral Screening Mammogram, [facility]. Tissue Density: There are scattered fibroglandular densities. Findings: Analyzed By CAD. There is no suspicious group of microcalcifications or new suspicious mass in either breast. Stable chronic nodularity within both breasts. Benign-appearing round calcifications within both breasts. Biopsy clip within the left breast. Overall Assessment: Benign, BI-RAD 2 Management: Screening Mammogram of both breasts in 1 year. A clinical breast exam by your physician is recommended on an annual basis and results should be correlated with mammographic findings. Electronically signed and approved by: Cooper Maxwell D.O.
== END | disposition home or self-care (01) ==
LOC: RADMAMWWP 14:37
PROVIDERS: ATTEND Family Medicine
DX: Z12.31 Encounter for screening mammogram for malignant neoplasm of breast (principal); Z78.0 Asymptomatic menopausal state; Z80.3 Family history of malignant neoplasm of breast
CPT/HCPCS: 77063; 77067

== ENCOUNTER 2023-05-30 07:12 | Day surgery (SDC) | payer MEDICARE ==
[~2023-05-30 07:12] MED LIST changes: +LIDOCAINE 1% (10MG/ML) FOR IV START INTRADERMA PRN
[2023-05-30 07:46] VITALS: TEMP 99.4
[2023-05-30] MEDS ORDERED: IPRATROPIUM-ALBUTEROL 3 ML NEB INHALATION STA (07:46)
[2023-05-30 07:59] LABS: Glucose,Whole Blood 110 mg/dL (70-110)
[2023-05-30] MEDS ORDERED: PROPOFOL 10 MG/ML 20 ML VIAL IV ONE (08:24)
--- NOTE | 2023-05-30 08:47 | P.PCN ---
Date of Procedure: 05/30/23 Procedure(s) Performed: BRIEF HISTORY: Patient is a 82-year-old pleasant white female scheduled for an elective colonoscopy as a part of evaluation of prior history of colon polyps. PROCEDURE PERFORMED: Colonoscopy snare polypectomy. PREOPERATIVE DIAGNOSIS: History of colon polyps. IV sedation per Anesthesia. PROCEDURE: After informed consent was obtained, the patient, was brought into the endoscopy unit. IV sedation was administered by Anesthesia under continuous monitoring. Digital rectal examination was normal. Initially the Olympus CF-160 flexible video colonoscope was then inserted in the rectum, gradually advanced into the cecum without any difficulty. Careful examination was performed as the scope was gradually being withdrawn. Ileocecal valve and the appendiceal orifice were visualized and appeared normal. Prep was excellent. Mucosa of the cecum, had a 6 minute a polyp that was removed by snare polypectomy. In the ascending colon there was a 5 mm polyp that was removed by snare polypectomy. In the proximal transverse colon there was a 1. was admitted polyp removed by snare polypectomy. In the descending colon there was another 5 mm sessile polyp removed by snare polypectomy. Rest of the descending colon, sigmoid colon, and rectum appeared normal. scattered sigmoid diverticulosis Retroflexion was performed in the rectum and no lesions were seen. The patient tolerated the procedure well. IMPRESSION: 6 mm cecal polyp status post polypectomy 5 mm ascending colon polyp status post-polypectomy 1.2 cm transverse colon polyp status post-polypectomy 5 mm descending colon polyp status post polypectomy Scattered sigmoid diverticulosis RECOMMENDATIONS: Findings of this examination were discussed with the patient follow with the biopsy results. Continue with a high-fiber diet and take fiber supplements as needed..
[2023-05-30 09:26] VITALS: BP 141/82; PULSE 97; RESP 20
== END 2023-05-30 09:35 | disposition home or self-care (01) ==
LOC: ORWHC2ENDO 07:12
PROVIDERS: ATTEND Internal Medicine Gastroenterology
DX: Z12.11 Encounter for screening for malignant neoplasm of colon (principal); D12.0 Benign neoplasm of cecum; D12.2 Benign neoplasm of ascending colon; D12.4 Benign neoplasm of descending colon; K57.30 Diverticulosis of large intestine without perforation or abscess without bleeding; I10 Essential (primary) hypertension; E78.5 Hyperlipidemia, unspecified; J44.9 Chronic obstructive pulmonary disease, unspecified; G47.33 Obstructive sleep apnea (adult) (pediatric); Z79.82 Long term (current) use of aspirin; Z86.010 Personal history of colon polyps; Z79.899 Other long term (current) drug therapy
CPT/HCPCS: 94640; 88305; 45385; J2704